=== PATIENT | female | born 1960 | race Caucasian/White ===

== ENCOUNTER 2018-11-17 15:14 | Emergency (ER) | payer BC, OTHER ==
[2018-11-17 16:15] LABS: ANION GAP 14.2; CHLORIDE,CL 108 mmol/L (101-111); SODIUM,NA 140 mmol/L (135-145)
--- NOTE | 2018-11-17 16:32 | CR ---
Clinical history: 58-year-old female with left arm and history of chest pain. 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 Hiatus hernia incarcerated in the lower middle mediastinum. Normal cardiac silhouette without signs of alveolar edema or dependent effusion. No lung mass, hilar lymphadenopathy or focal lobar pneumonia. No atelectasis/collapse. No pneumothorax. CONCLUSION: No acute cardiopulmonary abnormality. Hiatus hernia.
--- NOTE | 2018-11-17 16:35 | CT ---
Clinical history: 58-year-old obese female with left arm pain and visual changes left eye (x2-3 days). Scan technique: Volume acquisition of data emergency unenhanced CT scan of the head and brain obtained with the patient was lying supine on the Siemens multi slice scanner [place], [place]. All data archived in the PACS system for storage, reformatting axial/sagittal/coronal planes and study. Interpretation: 1. Hyperostosis frontalis interna. Symmetric normal appearing optic globes without sign of retro-orbital mass lesion. 2. Symmetric clear pneumatization of the paranasal and mastoid sinuses. Physiologic midline pineal calcifications. 3. No sign of supratentorial or posterior fossa mass lesion, hydrocephalus or ischemic infarct. 4. No acute intracerebral/intraventricular/subarachnoid bleed. No abnormal extracerebral/intracranial epidural/subdural hematoma. 5. Cerebellum and brainstem unremarkable. CONCLUSION: Negative exam.
[2018-11-17] MEDS ORDERED: GI Cocktail Oral Solution 30 ML PO ONE (16:42)
--- NOTE | 2018-11-17 17:57 | EDM.PDOC ---
Scribed by Carmen Medina 11/17/18 [id number] for Speedy Shelby PA ED HPI GENERAL MEDICAL PROBLEM - General Chief Complaint: General Stated Complaint: LEFT ARM HURTS/CHEST DISCOMFORT Time Seen by Provider: 11/17/18 16:00 Source of Information: Reports: Patient, RN, RN Notes Reviewed History Limitations: Reports: No Limitations - History of Present Illness INITIAL COMMENTS - FREE TEXT/NARRATIVE: A 58-year-old female with left arm pain, substernal chest pain, shortness fo breath intermittently. Vision change left eye. Her left arm paiin has been for 3 days. Chest pain for 1 to 2 hours. Intermittent shortness of breath for a month. Visions changes brief episode. Onset: Gradual Duration: Getting Worse Location: Reports: Head, Chest Quality: Reports: Ache Severity: Moderate Improves with: Reports: None Worsens with: Reports: None Associated Symptoms: Reports: No Other Symptoms Treatments MEDICAL CASE WORKER: Reports: Aspirin, Other (see below) Other Treatments MEDICAL CASE WORKER: unknown dose - "white and tasted terrible" Left Axillary Pain Score (Numeric/FACES): 8 - Related Data Allergies Allergy/AdvReac Type Severity Reaction Status Date / Time No Known Allergies Allergy Verified 11/17/18 15:58 Home Meds: Home Meds Azithromycin [Zithromax] 250 mg PO DAILY 05/07/18 [History] Calcium Carbonate [Tums] 2 tab PO ASDIRECTED 05/07/18 [History] Ibuprofen 200 mg PO Q6H 05/07/18 [History] Levothyroxine Sodium [Synthroid] 125 mg PO DAILY 05/07/18 [History] Multivitamin/Iron/Folic Acid [Centrum Adults Tablet] 1 tab PO DAILY 05/07/18 [ History] Omeprazole 20 mg PO DAILY 05/07/18 [History] Rosuvastatin [Crestor] 5 mg PO .EVERYOTHERDAY 05/07/18 [History] Sertraline [Zoloft] 25 mg PO DAILY 05/07/18 [History] Iron 1 tab PO DAILY 11/17/18 [History] Past Medical History HEENT History: Reports: Sinusitis Cardiovascular History: Reports: Blood Clots/VTE/DVT Respiratory History: Reports: None Gastrointestinal History: Reports: None Genitourinary History: Reports: None 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: 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 History: Reports: None Neurological History: Reports: Migraines Psychiatric History: Reports: Depression Endocrine/Metabolic History: Reports: Hypothyroidism Hematologic History: Reports: Anemia Immunologic History: Reports: None Oncologic (Cancer) History: Reports: None Dermatologic History: Reports: None - Infectious Disease History Infectious Disease History: Reports: Chicken Pox, Mumps - Past Surgical History Head Surgeries/Procedures: Reports: None HEENT Surgical History: Reports: None Cardiovascular Surgical History: Reports: None Respiratory Surgical History: Reports: None GI Surgical History: Reports: Cholecystectomy, Colonoscopy, EGD Female Surgical History: Reports: Breast Biopsy, Tubal Ligation Endocrine Surgical History: Reports: None Neurological Surgical History: Reports: None 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 Surgical History: Reports: None Oncologic Surgical History: Reports: Biopsy of Breast Social & Family History - Family History HEENT: Reports: Cataract Cardiac: Reports: High Cholesterol Respiratory: Reports: None GI: Reports: None : Reports: None OBGYN: Reports: None 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: Reports: None Neurological: Reports: None Psychiatric: Reports: None Endocrine/Metabolic: Reports: Diabetes, Type I Hematologic: Reports: None Immunologic: Reports: None Dermatologic: Reports: None Oncologic: Reports: Colon - Caffeine Use Caffeine Use: Reports: Coffee Caffeine Use Comment: COFFEE, 12OZ. 12 OZ SODA ED ROS GENERAL - Review of Systems Review Of Systems: ROS reveals no pertinent complaints other than HPI. ED EXAM, GENERAL - Physical Exam Exam: See Below Exam Limited By: No Limitations General Appearance: Anxious Eye Exam: Bilateral Eye: EOMI, Normal Inspection, PERRL Ears: Normal External Exam, Normal Canal, Hearing Grossly Normal, Normal TMs Nose: Normal Inspection, Normal Mucosa, No Blood Throat/Mouth: Normal Inspection, Normal Lips, Normal Teeth, Normal Gums, Normal Oropharynx, Normal Voice, No Airway Compromise Head: Atraumatic, Normocephalic Neck: Normal Inspection, Supple, Non-Tender, Full Range of Motion Respiratory/Chest: No Respiratory Distress, Lungs Clear, Normal Breath Sounds, No Accessory Muscle Use, Chest Non-Tender Cardiovascular: Normal Peripheral Pulses, Regular Rate, Rhythm, No Edema, No Gallop, No JVD, No Murmur, No Rub (Female) Exam: Deferred Rectal (Female) Exam: Deferred Back Exam: Normal Inspection, Full Range of Motion, NT Extremities: Other (left arm pain (axilla). ) Neurological: Alert, Oriented, CN II-XII Intact, Normal Cognition, Normal Gait, Normal Reflexes, No Motor/Sensory Deficits Psychiatric: Anxious Skin Exam: Warm, Dry, Intact, Normal Color, No Rash Lymphatic: No Adenopathy Course - Vital Signs Last Recorded V/S: Last Vital Signs Temp 37.1 C 11/17/18 15:24 Pulse 81 11/17/18 15:24 Resp 22 H 11/17/18 15:24 BP 166/85 H 11/17/18 15:24 Pulse Ox 97 11/17/18 15:24 - Orders/Labs/Meds Orders: Active Orders 24 hr Category Date Time Status EKG 12 Lead [EKG Documentation Completion] [RC] STAT Care 11/17/18 16:13 Active Labs: Laboratory Tests 11/17/18 11/17/18 Range/Units 15:29 15:29 WBC 6.4 (5.0-10.0) 10^3/uL RBC 4.15 L (4.2-5.4) 10^6/uL Hgb 11.0 L (12.0-16.0) g/dL Hct 36.2 L (37.0-47.0) % MCV 87.2 (80-100) fL MCH 26.5 L (27.0-34.0) pg MCHC 30.4 L (33.0-35.0) g/dL Plt Count 293 (150-450) 10^3/uL Neut % (Auto) 51.0 (42.2-75.2) % Lymph % (Auto) 35.2 (20.5-50.1) % [place] % (Auto) 10.4 H (2-8) % Eos % (Auto) 2.5 (1.0-3.0) % Baso % (Auto) 0.9 (0.0-1.0) % Sodium 140 (135-145) mmol/L Potassium 4.2 (3.6-5.0) mmol/L Chloride 108 (101-111) mmol/L Carbon Dioxide 22.0 (21.0-31.0) mmol/L Anion Gap 14.2 BUN 15 (7-18) mg/dL Creatinine 0.7 (0.6-1.3) mg/dL Est Cr Clr Drug Dosing 74.96 mL/min Estimated GFR (MDRD) > 60 BUN/Creatinine Ratio 21.42 Glucose 96 (74-105) mg/dL Calcium 8.5 (8.4-10.2) mg/dl Total Bilirubin 0.7 (0.2-1.0) mg/dL AST 35 (10-42) IU/L ALT 23 (10-60) IU/L Alkaline Phosphatase 74 (42-121) IU/L Troponin I < 0.02 (0.00-0.02) ng/ml Total Protein 6.7 (6.7-8.2) g/dl Albumin 3.9 (3.2-5.5) g/dl Globulin 2.8 Albumin/Globulin Ratio 1.39 Meds: Medications Discontinued Medications Generic Name Dose Route Start Last Admin Trade Name Freq PRN Reason Stop Dose Admin Al Hydroxide/Mg Hydroxide 30 ml 11/17/18 16:42 11/17/18 16:49 Gi Cocktail PO 11/17/18 16:43 30 ml ONETIME ONE Administration Departure - Departure Time of Disposition: 17:53 Disposition: Home, Self-Care 01 Condition: Fair Clinical Impression: GERD (gastroesophageal reflux disease) Qualifiers: Esophagitis presence: with esophagitis Qualified Code(s): K21.0 - Gastro- esophageal reflux disease with esophagitis - Discharge Information *PRESCRIPTION DRUG MONITORING PROGRAM REVIEWED*: Not Applicable *COPY OF PRESCRIPTION DRUG MONITORING REPORT IN PATIENT LESLEY: Not Applicable Instructions: Gastroesophageal Reflux Disease, Adult, [id number] Forms: ED Department Discharge Care Plan Goals: The patient was advised of the examination, CT, EKG and lab results during the visit. The patient was given a GI Cocktail while in the ED. The patient was discharged with a script for Omeprazole (20 mg) #30 to take 1 by mouth 30 minutes before eating daily. If the patient has any additional symptoms or concerns, the patient should either return to the emergency department or visit her primary care facility. - My Orders Last 24 Hours: My Active Orders 11/17/18 16:13 EKG 12 Lead [EKG Documentation Completion] [RC] STAT - Assessment/Plan Last 24 Hours: My Active Orders 11/17/18 16:13 EKG 12 Lead [EKG Documentation Completion] [RC] STAT I have read and agree with the documentation that has been completed regarding this visit. By signing this record, I attest that the documentation was completed in my physical presence and is an accurate record of the encounter.
== END 2018-11-17 18:03 | disposition home or self-care (01) ==
LOC: DL.ED 15:14
DX: K21.0 Gastro-esophageal reflux disease with esophagitis (principal); E03.9 Hypothyroidism, unspecified; F32.9 Major depressive disorder, single episode, unspecified; Z79.899 Other long term (current) drug therapy
CPT/HCPCS: 36415; 70450; 71045; 80053; 84484; 85025; 93005; 99285; A9270

== ENCOUNTER 2019-07-07 18:44 | Emergency (ER) | payer BC ==
[2019-07-07] MEDS ORDERED: Ondansetron 4 MG Tab.DIS PO ONE (18:45)
[2019-07-07] MEDS ORDERED: Sodium Chloride 0.9% 1,000 ML IV ONE (19:32)
[2019-07-07] MEDS ORDERED: Ondansetron 4 MG/2 ML SDV IV ONE (19:32)
[2019-07-07] MEDS ORDERED: Famotidine 20 MG/2 ML SDV IVPUSH ONE (19:34)
[2019-07-07 19:57] LABS: ANION GAP 14.3; CHLORIDE,CL 102 mmol/L (101-111); SODIUM,NA 135 mmol/L (135-145)
[2019-07-07] MEDS ORDERED: NS + KCl 20mEq/L 1,000 ML IV ONE (20:37)
[2019-07-07] MEDS ORDERED: Levothyroxine 100 MCG Vial IVPUSH ONE (21:42)
--- NOTE | 2019-07-07 22:36 | EDM.PDOC ---
ED HPI GENERAL MEDICAL PROBLEM - General Chief Complaint: Gastrointestinal Problem Stated Complaint: WEAK/DIZZY/DEHYDRATED Time Seen by Provider: 07/07/19 19:30 Source of Information: Reports: Patient History Limitations: Reports: No Limitations - History of Present Illness INITIAL COMMENTS - FREE TEXT/NARRATIVE: C/O feelling weeka nd dizzy and had vomiting and diarrhea past 3 weeks pat 24 hours unable to keep anything down. has been seen at clinic and given IVF> Normally low blood counts undetermined cause and has seen oncology. - Related Data Allergies Allergy/AdvReac Type Severity Reaction Status Date / Time No Known Allergies Allergy Verified 07/08/19 16:54 Home Meds: Home Meds Calcium Carbonate [Tums] 2 tab PO Q4HR 05/07/18 [History] Ibuprofen 200 mg PO Q6H PRN 05/07/18 [History] Levothyroxine Sodium [Synthroid] 125 mcg PO DAILY 05/07/18 [History] Multivitamin/Iron/Folic Acid [Centrum Adults Tablet] 1 tab PO DAILY 05/07/18 [ History] Omeprazole 20 mg PO DAILY 05/07/18 [History] Rosuvastatin [Crestor] 5 mg PO .EVERYOTHERDAY 05/07/18 [History] Sertraline [Zoloft] 25 mg PO DAILY 05/07/18 [History] Ferrous Sulfate [Slow Fe] 140 mg PO DAILY 07/08/19 [History] Iron Polysaccharide Complex [Iferex 150] 150 mg PO DAILY 07/08/19 [History] Loperamide [Imodium] 2 mg PO QID PRN 07/08/19 [History] Past Medical History HEENT History: Reports: Sinusitis Other HEENT History: wears corrective lenses Cardiovascular History: Reports: Blood Clots/VTE/DVT Respiratory History: Reports: None Gastrointestinal History: Reports: None Genitourinary History: Reports: None 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: Reports: 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 History: Reports: None Neurological History: Reports: Migraines Psychiatric History: Reports: Depression Endocrine/Metabolic History: Reports: Hypothyroidism Hematologic History: Reports: Anemia Immunologic History: Reports: None Oncologic (Cancer) History: Reports: None Dermatologic History: Reports: None - Infectious Disease History Infectious Disease History: Reports: Chicken Pox, Mumps - Past Surgical History Head Surgeries/Procedures: Reports: None HEENT Surgical History: Reports: None Cardiovascular Surgical History: Reports: None Respiratory Surgical History: Reports: None GI Surgical History: Reports: Cholecystectomy, Colonoscopy, EGD Female Surgical History: Reports: Breast Biopsy, Tubal Ligation Endocrine Surgical History: Reports: None Neurological Surgical History: Reports: None 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 Surgical History: Reports: None Oncologic Surgical History: Reports: Biopsy of Breast Social & Family History - Family History Family Medical History: Noncontributory HEENT: Reports: Cataract Cardiac: Reports: High Cholesterol Respiratory: Reports: None GI: Reports: None : Reports: None OBGYN: Reports: None 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: Reports: None Neurological: Reports: None Psychiatric: Reports: None Endocrine/Metabolic: Reports: Diabetes, Type I Hematologic: Reports: None Immunologic: Reports: None Dermatologic: Reports: None Oncologic: Reports: Colon - Tobacco Use Smoking Status *Q: Never Smoker Second Hand Smoke Exposure: No - Caffeine Use Caffeine Use: Reports: Coffee Other Caffeine Use: states drinks 1 Body [place] daily Caffeine Use Comment: COFFEE, 12OZ. 12 OZ SODA - Recreational Drug Use Recreational Drug Use: No ED ROS GENERAL - Review of Systems Review Of Systems: See Below Constitutional: Reports: Malaise, Decreased Appetite HEENT: Reports: No Symptoms Respiratory: Denies: Shortness of Breath, Wheezing Cardiovascular: Reports: No Symptoms. Denies: Orthopnea, Syncope GI/Abdominal: Reports: Diarrhea, Vomiting. Denies: Black Stool, Hematemesis : Reports: No Symptoms Skin: Reports: No Symptoms Neurological: Reports: No Symptoms Hematologic/Lymphatic: Reports: Anemia ED EXAM, GI/ABD - Physical Exam Exam: See Below Exam Limited By: No Limitations General Appearance: Alert, Anxious, Mild Distress Eyes: Bilateral: EOMI Ears: Normal External Exam Nose: Normal Inspection Throat/Mouth: Normal Lips, Normal Voice, Other (mucus membranes tacky) Head: Atraumatic, Normocephalic Neck: Normal Inspection Respiratory/Chest: No Respiratory Distress, Lungs Clear, Normal Breath Sounds Cardiovascular: Normal Peripheral Pulses, Regular Rate, Rhythm, No Edema GI/Abdominal Exam: Normal Bowel Sounds, Soft, Other (mild epigastric tenderness) Rectal (Female) Exam: Heme - Stool Back Exam: Normal Inspection Extremities: Normal Inspection Neurological: Alert, Oriented, Normal Cognition, No Motor/Sensory Deficits Psychiatric: Anxious Skin Exam: Warm, Dry, Intact, Pallor Course - Vital Signs Last Recorded V/S: Last Vital Signs Temp 97.8 F 07/07/19 19:17 Pulse 75 07/07/19 19:17 Resp 18 07/07/19 19:17 BP 125/77 07/07/19 19:17 Pulse Ox 95 07/07/19 19:17 Orthostatic Blood Pressure [ 117/68 Standing] Orthostatic Blood Pressure [ 123/76 Sitting] Orthostatic Blood Pressure [ 115/62 Supine] - Orders/Labs/Meds Labs: Laboratory Tests 07/07/19 07/07/19 07/07/19 Range/Units 19:27 19:27 19:32 WBC 4.5 L (5.0-10.0) 10^3/uL RBC 4.06 L (4.2-5.4) 10^6/uL Hgb 8.8 L D (12.0-16.0) g/dL Hct 29.7 L (37.0-47.0) % MCV 73.2 L D (80-100) fL MCH 21.7 L (27.0-34.0) pg MCHC 29.6 L (33.0-35.0) g/dL Plt Count 371 D (150-450) 10^3/uL Neut % (Auto) 50.7 (42.2-75.2) % Lymph % (Auto) 33.6 (20.5-50.1) % Chase % (Auto) 14.2 H (2-8) % Eos % (Auto) 1.3 (1.0-3.0) % Baso % (Auto) 0.2 (0.0-1.0) % Add Manual Diff Yes Neutrophils % (Manual) 51 (42-75) % Lymphocytes % (Manual) 37 (20-50) % Monocytes % (Manual) 11 H (2-8) % Eosinophils % (Manual) 1 (1-3) % Atypical Lymphocytes Few PT 9.3 (9.0-12.0) SEC INR 0.9 (0.9-1.2) Sodium 135 (135-145) mmol/L Potassium 3.3 L (3.6-5.0) mmol/L Chloride 102 (101-111) mmol/L Carbon Dioxide 22.0 (21.0-31.0) mmol/L Anion Gap 14.3 BUN 10 (7-18) mg/dL Creatinine 0.8 (0.6-1.3) mg/dL Est Cr Clr Drug Dosing 67.00 mL/min Estimated GFR (MDRD) > 60 BUN/Creatinine Ratio 12.50 Glucose 109 H (74-105) mg/dL Calcium 8.1 L (8.4-10.2) mg/dl Magnesium (1.8-2.5) mg/dL Total Bilirubin 0.3 (0.2-1.0) mg/dL AST 22 (10-42) IU/L ALT 20 (10-60) IU/L Alkaline Phosphatase 77 (42-121) IU/L Troponin I (0.00-0.02) ng/ml Total Protein 7.0 (6.7-8.2) g/dl Albumin 3.4 (3.2-5.5) g/dl Globulin 3.6 Albumin/Globulin Ratio 0.94 Amylase (28-100) U/L Lipase (22-51) U/L TSH, Ultra Sensitive (0.45-5.33) uIu/mL Urine Color (YELLOW) Urine Appearance (CLEAR) Urine pH (5.0-9.0) Ur Specific [place] (1.005-1.030) Urine Protein (NEGATIVE) Urine Glucose (UA) (NEGATIVE) Urine Ketones (NEGATIVE) Urine Occult Blood (NEGATIVE) Urine Nitrite (NEGATIVE) Urine Bilirubin (NEGATIVE) Urine Urobilinogen (0.2-1.0) mg/dL Ur Leukocyte Esterase (NEGATIVE) Blood Type Gel Antibody Screen 07/07/19 07/07/19 07/07/19 Range/Units 19:32 19:32 19:41 WBC (5.0-10.0) 10^3/uL RBC (4.2-5.4) 10^6/uL Hgb (12.0-16.0) g/dL Hct (37.0-47.0) % MCV (80-100) fL MCH (27.0-34.0) pg MCHC (33.0-35.0) g/dL Plt Count (150-450) 10^3/uL Neut % (Auto) (42.2-75.2) % Lymph % (Auto) (20.5-50.1) % Chase % (Auto) (2-8) % Eos % (Auto) (1.0-3.0) % Baso % (Auto) (0.0-1.0) % Add Manual Diff Neutrophils % (Manual) (42-75) % Lymphocytes % (Manual) (20-50) % Monocytes % (Manual) (2-8) % Eosinophils % (Manual) (1-3) % Atypical Lymphocytes PT (9.0-12.0) SEC INR (0.9-1.2) Sodium (135-145) mmol/L Potassium (3.6-5.0) mmol/L Chloride (101-111) mmol/L Carbon Dioxide (21.0-31.0) mmol/L Anion Gap BUN (7-18) mg/dL Creatinine (0.6-1.3) mg/dL Est Cr Clr Drug Dosing mL/min Estimated GFR (MDRD) BUN/Creatinine Ratio Glucose (74-105) mg/dL Calcium (8.4-10.2) mg/dl Magnesium 1.9 (1.8-2.5) mg/dL Total Bilirubin (0.2-1.0) mg/dL AST (10-42) IU/L ALT (10-60) IU/L Alkaline Phosphatase (42-121) IU/L Troponin I < 0.02 (0.00-0.02) ng/ml Total Protein (6.7-8.2) g/dl Albumin (3.2-5.5) g/dl Globulin Albumin/Globulin Ratio Amylase 51 (28-100) U/L Lipase 25 (22-51) U/L TSH, Ultra Sensitive 21.23 H (0.45-5.33) uIu/mL Urine Color (YELLOW) Urine Appearance (CLEAR) Urine pH (5.0-9.0) Ur Specific [place] (1.005-1.030) Urine Protein (NEGATIVE) Urine Glucose (UA) (NEGATIVE) Urine Ketones (NEGATIVE) Urine Occult Blood (NEGATIVE) Urine Nitrite (NEGATIVE) Urine Bilirubin (NEGATIVE) Urine Urobilinogen (0.2-1.0) mg/dL Ur Leukocyte Esterase (NEGATIVE) Blood Type A POSITIVE Gel Antibody Screen Negative 07/07/19 Range/Units 20:25 WBC (5.0-10.0) 10^3/uL RBC (4.2-5.4) 10^6/uL Hgb (12.0-16.0) g/dL Hct (37.0-47.0) % MCV (80-100) fL MCH (27.0-34.0) pg MCHC (33.0-35.0) g/dL Plt Count (150-450) 10^3/uL Neut % (Auto) (42.2-75.2) % Lymph % (Auto) (20.5-50.1) % Chase % (Auto) (2-8) % Eos % (Auto) (1.0-3.0) % Baso % (Auto) (0.0-1.0) % Add Manual Diff Neutrophils % (Manual) (42-75) % Lymphocytes % (Manual) (20-50) % Monocytes % (Manual) (2-8) % Eosinophils % (Manual) (1-3) % Atypical Lymphocytes PT (9.0-12.0) SEC INR (0.9-1.2) Sodium (135-145) mmol/L Potassium (3.6-5.0) mmol/L Chloride (101-111) mmol/L Carbon Dioxide (21.0-31.0) mmol/L Anion Gap BUN (7-18) mg/dL Creatinine (0.6-1.3) mg/dL Est Cr Clr Drug Dosing mL/min Estimated GFR (MDRD) BUN/Creatinine Ratio Glucose (74-105) mg/dL Calcium (8.4-10.2) mg/dl Magnesium (1.8-2.5) mg/dL Total Bilirubin (0.2-1.0) mg/dL AST (10-42) IU/L ALT (10-60) IU/L Alkaline Phosphatase (42-121) IU/L Troponin I (0.00-0.02) ng/ml Total Protein (6.7-8.2) g/dl Albumin (3.2-5.5) g/dl Globulin Albumin/Globulin Ratio Amylase (28-100) U/L Lipase (22-51) U/L TSH, Ultra Sensitive (0.45-5.33) uIu/mL Urine Color Yellow (YELLOW) Urine Appearance Clear (CLEAR) Urine pH 5.5 (5.0-9.0) Ur Specific [place] 1.010 (1.005-1.030) Urine Protein Negative (NEGATIVE) Urine Glucose (UA) Negative (NEGATIVE) Urine Ketones Negative (NEGATIVE) Urine Occult Blood Negative (NEGATIVE) Urine Nitrite Negative (NEGATIVE) Urine Bilirubin Negative (NEGATIVE) Urine Urobilinogen 0.2 (0.2-1.0) mg/dL Ur Leukocyte Esterase Negative (NEGATIVE) Blood Type Gel Antibody Screen Meds: Medications Discontinued Medications Generic Name Dose Route Start Last Admin Trade Name Raf PRN Reason Stop Dose Admin Famotidine 20 mg 07/07/19 19:34 07/07/19 19:42 Pepcid IVPUSH 07/07/19 19:35 20 mg ONETIME ONE Administration Sodium Chloride 1,000 mls @ 999 mls/hr 07/07/19 19:32 07/07/19 19:40 Normal Saline IV 07/07/19 20:32 999 mls/hr .BOLUS ONE Administration Potassium Chloride/Sodium Chloride 1,000 mls @ 500 mls/hr 07/07/19 20:37 07/26 20:48 Normal Saline With 20 Meq Kcl IV 07/07/19 22:36 500 mls/hr ASDIRECTED ONE Administration Levothyroxine Sodium 100 mcg 07/07/19 21:42 07/07/19 21:59 Synthroid IVPUSH 07/07/19 21:43 100 mcg ONETIME ONE Administration Ondansetron HCl 4 mg 07/07/19 19:32 07/07/19 19:40 Zofran IV 07/07/19 19:33 4 mg ONETIME ONE Administration Ondansetron HCl Confirm 07/07/19 22:48 07/07/19 22:53 Zofran Odt Administered 07/07/19 22:49 Not Given Dose 12 mg .ROUTE .STK-MED ONE - Re-Assessments/Exams Free Text/Narrative Re-Assessment/Exam: 07/10/19 06:44 No vomiting or diarrhea during ED stay. No orthostatic change. Results of labs discussed withpatient. Follow up PCP this week. Return if symptoms worsen Departure - Departure Time of Disposition: 22:32 Disposition: Home, Self-Care 01 Condition: Good Clinical Impression: Dehydration Vomiting Qualifiers: Vomiting type: bilious vomiting Nausea presence: with nausea Qualified Code(s) : R11.14 - Bilious vomiting Hypothyroid Qualifiers: Hypothyroidism type: unspecified Qualified Code(s): E03.9 - Hypothyroidism, unspecified Anemia Qualifiers: Anemia type: unspecified type Qualified Code(s): D64.9 - Anemia, unspecified - Discharge Information *PRESCRIPTION DRUG MONITORING PROGRAM REVIEWED*: No *COPY OF PRESCRIPTION DRUG MONITORING REPORT IN PATIENT LESLEY: No Instructions: Hypothyroidism, Nausea, Adult, [id number], Dehydration, Adult Referrals: Cristal Billy MD [Primary Care Provider] - Forms: ED Department Discharge Additional Instructions: Resume home medications zofran ODT 4mg one every 4 hours as needed for nausea clinic follow up on Friday light diet, few sips gradual advancement as tolerated limit milk products x 24 hours change position slowly Sepsis Event Note - Evaluation Sepsis Screening Result: No Definite Risk - Focused Exam Date Exam was Performed: 07/10/19 Time Exam was Performed: 06:36
[2019-07-07] MEDS ORDERED: Ondansetron 4 MG Tab.DIS ONE (22:48)
== END 2019-07-07 23:07 | disposition home or self-care (01) ==
LOC: DL.ED 18:44 → UNDOADMIN 07-08 16:16 → DL.MS 07-08 16:16
DX: E86.0 Dehydration (principal); R11.14 Bilious vomiting; E03.9 Hypothyroidism, unspecified; D64.9 Anemia, unspecified; F32.9 Major depressive disorder, single episode, unspecified; Z79.899 Other long term (current) drug therapy
CPT/HCPCS: 36415; 80053; 81003; 82150; 82272; 83690; 83735; 84443; 84484; 85025; 85610; 86850; 86900; 86901; 93005; 96361; 96365; 96366; 96375; 99284; A9270; J2405; J3480; J3490; J7030

== ENCOUNTER 2019-07-08 16:16 | Inpatient (IN) | payer BC ==
[2019-07-08] MEDS ORDERED: Loperamide 2 MG Cap PO PRN (17:12)
--- NOTE | 2019-07-08 17:23 | PCM.HP ---
H&P History of Present Illness - General Date of Service: 07/08/19 Admit Problem/Dx: Admission Diagnosis/Problem Admission Diagnosis/Problem Diarrhea Source of Information: Patient History Limitations: Reports: No Limitations - History of Present Illness Initial Comments - Free Text/Narative: This 58-year-old female with medical history of osteoarthritis, hypothyroidism, gastroesophageal reflux disease, and dyslipidemia. Patient is admitted from the clinic because of diarrhea that has not responded to outpatient management with associated vomiting. Patient began to have diarrhea on 06/26/19. He was very profuse. She was going every 2 hours and later on it became every 4 hours. Has continued to have diarrhea despite using Imodium tablets frequently. Also has associated nausea and vomiting. No abdominal pain. No hematemesis melena or hematochezia. Patient has been seen emergency room twice and given intravenous fluid because of dehydration. She was again seen in the clinic today and feels miserable. She'll be admitted to the medical floor. - Related Data Allergies/Adverse Reactions: Allergies Allergy/AdvReac Type Severity Reaction Status Date / Time No Known Allergies Allergy Verified 07/08/19 16:54 Home Medications: Home Meds Calcium Carbonate [Tums] 2 tab PO Q4HR 05/07/18 [History] Ibuprofen 200 mg PO Q6H PRN 05/07/18 [History] Levothyroxine Sodium [Synthroid] 125 mg PO DAILY 05/07/18 [History] Multivitamin/Iron/Folic Acid [Centrum Adults Tablet] 1 tab PO DAILY 05/07/18 [ History] Omeprazole 20 mg PO DAILY 05/07/18 [History] Rosuvastatin [Crestor] 5 mg PO .EVERYOTHERDAY 05/07/18 [History] Sertraline [Zoloft] 25 mg PO DAILY 05/07/18 [History] Ferrous Sulfate [Slow Fe] 140 mg PO DAILY 07/08/19 [History] Iron Polysaccharide Complex [Iferex 150] 150 mg PO DAILY 07/08/19 [History] Levothyroxine 12.5 mcg PO ACBREAKFAST 07/08/19 [History] Loperamide [Imodium] 2 mg PO QID PRN 07/08/19 [History] Past Medical History HEENT History: Reports: Sinusitis Other HEENT History: wears corrective lenses Cardiovascular History: Reports: Blood Clots/VTE/DVT Respiratory History: Reports: Pneumonia, Recurrent Gastrointestinal History: Reports: None Genitourinary History: Reports: None 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: 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 History: Reports: None Neurological History: Reports: Migraines Psychiatric History: Reports: Depression Endocrine/Metabolic History: Reports: Hypothyroidism Hematologic History: Reports: Anemia Immunologic History: Reports: None Oncologic (Cancer) History: Reports: None Dermatologic History: Reports: None - Infectious Disease History Infectious Disease History: Reports: Chicken Pox, Measles, Mumps - Past Surgical History Head Surgeries/Procedures: Reports: None HEENT Surgical History: Reports: None Cardiovascular Surgical History: Reports: None Respiratory Surgical History: Reports: None GI Surgical History: Reports: Cholecystectomy, Colonoscopy, EGD Other GI Surgeries/Procedures: Currently has diarrhea Female Surgical History: Reports: Breast Biopsy, Tubal Ligation Endocrine Surgical History: Reports: None Neurological Surgical History: Reports: None 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 Surgical History: Reports: None Oncologic Surgical History: Reports: Biopsy of Breast Social & Family History - Family History Family Medical History: Noncontributory HEENT: Reports: Cataract Cardiac: Reports: High Cholesterol Respiratory: Reports: None GI: Reports: None : Reports: None OBGYN: Reports: None 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: Reports: None Neurological: Reports: None Psychiatric: Reports: None Endocrine/Metabolic: Reports: Diabetes, Type I Hematologic: Reports: None Immunologic: Reports: None Dermatologic: Reports: None Oncologic: Reports: Colon - Tobacco Use Smoking Status *Q: Former Smoker Used Tobacco, but Quit: Yes Month/Year Tobacco Last Used: 10/2009 - Caffeine Use Caffeine Use: Reports: Coffee, Soda, Tea Other Caffeine Use: states drinks 1 Body [place] daily Caffeine Use Comment: COFFEE, 12OZ. 12 OZ SODA - Recreational Drug Use Recreational Drug Use: No H&P Review of Systems - Review of Systems: Review Of Systems: See Below General: Reports: Malaise, Weakness Pulmonary: Reports: No Symptoms Cardiovascular: Reports: No Symptoms Gastrointestinal: Reports: Diarrhea, Vomiting Genitourinary: Reports: No Symptoms 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: Reports: No Symptoms Skin: Reports: No Symptoms Psychiatric: Reports: No Symptoms Exam - Exam Exam: See Below - Vital Signs Vital Signs: Last Vital Signs Temp 36.7 C 07/08/19 16:37 Pulse 66 07/08/19 16:37 Resp 20 07/08/19 16:37 BP 137/76 07/08/19 16:37 Pulse Ox 100 07/08/19 16:37 Weight: 100.698 kg - Exam General: Alert, Oriented, Cooperative HEENT: Conjunctiva Clear, Mucosa Moist & [place] Neck: Supple, Trachea Midline Lungs: Clear to Auscultation, Normal Respiratory Effort Cardiovascular: Regular Rate, Regular Rhythm GI/Abdominal Exam: Normal Bowel Sounds, Soft, Non-Tender Extremities: Normal Inspection, Normal Range of Motion, Non-Tender, No Pedal Edema, Normal Capillary Refill Skin: Warm, Dry, Intact Problem List Initiated/Reviewed/Updated: Yes Orders Last 24hrs: Active Orders 24 hr Category Date Time Status Patient Status [ADT] Routine ADT 07/08/19 17:09 Active Intake and Output [RC] QSHIFT Care 07/08/19 17:10 Active Oxygen Therapy [RC] PRN Care 07/08/19 17:09 Active Up ad Loni [RC] ASDIRECTED Care 07/08/19 17:09 Active VTE/DVT Education [RC] PER UNIT ROUTINE Care 07/08/19 17:09 Active Vital Signs [RC] Q4H Care 07/08/19 17:09 Active Regular Diet [DIET] Diet 07/08/19 Dinner Active Abdomen Pelvis w Cont [CT] Routine Exams 07/08/19 17:12 Ordered BASIC METABOLIC PANEL,BMP [CHEM] Routine Lab 07/09/19 06:00 Ordered CBC W/O DIFF,HEMOGRAM [HEME] Routine Lab 07/09/19 06:00 Ordered CLOSTRIDIUM DIFFICILE TOX RFLX [MREF] Routine Lab 07/08/19 17:15 Ordered COMPREHENSIVE METABOLIC PN,CMP [CHEM] AM Lab 07/09/19 05:11 Ordered OVA PARASITE EXAM Routine Lab 07/08/19 17:13 Ordered OVA & PARASITES BY IMMUNOASSAY [MREF] Routine Lab 07/08/19 17:13 Ordered TSH ULTRASENSITIVE [CHEM] Routine Lab 07/08/19 17:13 Ordered Enoxaparin [Lovenox] Med 07/09/19 09:00 Ordered 40 mg SUBCUT DAILY Loperamide [Imodium] Med 07/08/19 17:12 Ordered 2 mg PO Q4H PRN Ondansetron [Zofran] Med 07/08/19 17:09 Ordered 4 mg IVPUSH Q6H PRN Sodium Chloride 0.9% [Normal Saline] 1,000 ml Med 07/08/19 17:15 Ordered IV ASDIRECTED Isolation [COMM] Stat Oth 07/08/19 17:16 Ordered Resuscitation Status Routine Resus Stat 07/08/19 17:09 Ordered Medication Orders Enoxaparin Sodium (Lovenox) 40 mg SUBCUT DAILY [facility] Sodium Chloride (Normal Saline) 1,000 mls @ 125 mls/hr IV ASDIRECTED [facility] Loperamide HCl (Imodium) 2 mg PO Q4H PRN PRN Reason: Diarrhea Ondansetron HCl (Zofran) 4 mg IVPUSH Q6H PRN PRN Reason: Nausea/Vomiting Assessment/Plan Comment:: #. Diarrhea The patient has been having diarrhea for the past 2 weeks Because of the diarrhea is not obvious. I like to rule out colitis, C. difficile colitis. It could also be gastroenteritis but it usually does not last this long. #. Anemia Recently diagnosed with anemia Reason for this is not obvious Combination of diarrhea and anemia raises concern about celiac's disease #. Hypothyroidism on no hormone replacement therapy #. Gastroesophageal reflux disease On proton pump inhibitor #. Dyslipidemia Continue statin Plan: Admit patient to medical floor Intravenous hydration with normal saline Obtain CT scan of the abdomen Send stool for ova and parasite Send stool for C. difficile toxin Send stool for cultures Obtain serum ferritin iron and IBC. Patient's medical chart was reviewed.
[2019-07-08] MEDS ORDERED: Sodium Chloride 0.9% 10 ML Syringe FLUSH PRN (17:40)
[2019-07-08] MEDS: Sodium Chloride 0.9% 1,000 ML IV SCH (17:57)
[2019-07-08] MEDS: Ondansetron 4 MG/2 ML SDV IVPUSH PRN (17:57)
[2019-07-08] MEDS ORDERED: Acetaminophen 325 MG Tab PO PRN (20:15)
[2019-07-08] MEDS: Prochlorperazine 5 MG Tab PO PRN (20:25)
[2019-07-08] MEDS: traMADol 50 MG Tab PO SCH (22:40)
[2019-07-09] MEDS: Sodium Chloride 0.9% 1,000 ML IV SCH ×2 (02:01→09:21)
[2019-07-09] MEDS: traMADol 50 MG Tab PO SCH (04:39)
[2019-07-09 06:57] LABS: ANION GAP 10.2; CHLORIDE,CL 110 mmol/L (101-111); SODIUM,NA 141 mmol/L (135-145)
[2019-07-09] MEDS: traMADol 50 MG Tab PO PRN (09:20)
[2019-07-09] MEDS ORDERED: Levothyroxine 100 MCG Tab PO SCH (10:00)
[2019-07-09] MEDS ORDERED: Ferrous Sulfate 325 MG Tab PO SCH (11:00)
[2019-07-09] MEDS ORDERED: Barium Sulfate w/v 2.1% Oral Susp 450 ML Bottle PO ONE (11:02)
[2019-07-09] MEDS: Prochlorperazine 5 MG Tab PO PRN (11:10)
--- NOTE | 2019-07-09 11:42 | PCM.PN ---
- General Info Date of Service: 07/09/19 Subjective Update: Patient is complaining of feeling very weak today. She feels exhausted. Her hemoglobin is down to 7.7. No longer having diarrhea. No nausea and no vomiting since admission. Has not had fever chills or rigors. She is asking for blood transfusion - Review of Systems General: Reports: Weakness, Fatigue HEENT: Reports: No Symptoms Pulmonary: Reports: Shortness of Breath Cardiovascular: Reports: No Symptoms Gastrointestinal: Reports: No Symptoms - Patient Data Vitals - Most Recent: Last Vital Signs Temp 36.6 C 07/09/19 07:56 Pulse 60 07/09/19 07:56 Resp 20 07/09/19 07:56 BP 109/61 07/09/19 07:56 Pulse Ox 96 07/09/19 07:56 Weight - Most Recent: 100.698 kg I&O - Last 24 Hours: Intake & Output 07/08/19 07/09/19 07/09/19 22:59 06:59 14:59 Output Total 500 Balance -500 Lab Results Last 24 Hours: Laboratory Results - last 24 hr 07/09/19 07/09/19 07/09/19 Range/Units 05:50 05:50 05:50 WBC 3.7 L (5.0-10.0) 10^3/uL RBC 3.63 L (4.2-5.4) 10^6/uL Hgb 7.7 L (12.0-16.0) g/dL Hct 27.5 L (37.0-47.0) % MCV 75.8 L (80-100) fL MCH 21.2 L (27.0-34.0) pg MCHC 28.0 L (33.0-35.0) g/dL Plt Count 338 (150-450) 10^3/uL Sodium 141 (135-145) mmol/L Potassium 4.2 (3.6-5.0) mmol/L Chloride 110 (101-111) mmol/L Carbon Dioxide 25.0 (21.0-31.0) mmol/L Anion Gap 10.2 BUN 6 L (7-18) mg/dL Creatinine 0.8 (0.6-1.3) mg/dL Est Cr Clr Drug Dosing 67.00 mL/min Estimated GFR (MDRD) > 60 BUN/Creatinine Ratio 7.50 Glucose 85 (74-105) mg/dL Calcium 7.6 L (8.4-10.2) mg/dl Total Bilirubin 0.4 (0.2-1.0) mg/dL AST 17 (10-42) IU/L ALT 15 (10-60) IU/L Alkaline Phosphatase 69 (42-121) IU/L Total Protein 5.8 L (6.7-8.2) g/dl Albumin 2.8 L (3.2-5.5) g/dl Globulin 3.0 Albumin/Globulin Ratio 0.93 TSH, Ultra Sensitive 28.54 H (0.45-5.33) uIu/mL Med Orders - Current: Current Medications Acetaminophen (Tylenol) 650 mg PO Q6H PRN PRN Reason: Headache Last Admin: 07/08/19 20:24 Dose: 325 mg Enoxaparin Sodium (Lovenox) 40 mg SUBCUT DAILY [facility] Ferrous Sulfate (Ferrous Sulfate) 325 mg PO TID@0900,1100,1600 [facility] Sodium Chloride (Normal Saline) 1,000 mls @ 75 mls/hr IV ASDIRECTED [facility] Last Infusion: 07/09/19 10:36 Dose: 75 mls/hr Levothyroxine Sodium (Synthroid) 200 mcg PO DAILY@0500 [facility] Loperamide HCl (Imodium) 2 mg PO Q4H PRN PRN Reason: Diarrhea Multivitamins/Minerals (Vitamins And Minerals) 1 tab PO DAILY [facility] Omeprazole (Omeprazole) 20 mg PO BEDTIME [facility] Ondansetron HCl (Zofran) 4 mg IVPUSH Q6H PRN PRN Reason: Nausea/Vomiting Last Admin: 07/08/19 17:57 Dose: 4 mg Prochlorperazine Maleate (Compazine) 10 mg PO Q6HR PRN PRN Reason: Nausea Last Admin: 07/09/19 11:10 Dose: 10 mg Rosuvastatin Calcium (Crestor) 5 mg PO Q48H [facility] Sertraline HCl (Zoloft) 25 mg PO DAILY [facility] Sodium Chloride (Saline Flush) 10 ml FLUSH ASDIRECTED PRN PRN Reason: Keep Vein Open Tramadol HCl (Ultram) 50 mg PO Q6H PRN PRN Reason: Pain (moderate 4-6) Last Admin: 07/09/19 09:20 Dose: 50 mg Discontinued Medications Barium Sulfate (Readi-Cat 2) 900 ml PO ONETIME ONE Stop: 07/09/19 11:03 Last Admin: 07/09/19 11:10 Dose: 900 ml Ferrous Sulfate (Ferrous Sulfate) 325 mg PO TIDAC [facility] Last Admin: 07/09/19 11:33 Dose: Not Given Levothyroxine Sodium (Synthroid) 200 mcg PO ACBREAKFAST [facility] Last Admin: 07/09/19 11:33 Dose: Not Given Tramadol HCl (Ultram) 50 mg PO Q6H [facility] Last Admin: 07/09/19 04:39 Dose: Not Given - Exam General: Alert, Oriented, Cooperative Neck: Supple Lungs: Clear to Auscultation, Normal Respiratory Effort Cardiovascular: Regular Rate, Regular Rhythm GI/Abdominal Exam: Normal Bowel Sounds, Soft, Non-Tender, No Organomegaly, No Distention, No Abnormal Bruit, No Mass, Pelvis Stable Extremities: Normal Inspection, Normal Range of Motion, Non-Tender, No Pedal Edema, Normal Capillary Refill Sepsis Event Note - Evaluation Sepsis Screening Result: No Definite Risk - Focused Exam Vital Signs: Vital Signs Temp Pulse Resp BP BP Pulse Ox 07/09/19 07:56 36.6 C 60 20 109/61 96 07/09/19 04:00 36.6 C 59 L 18 115/69 95 07/09/19 00:00 36.6 C 60 18 107/67 95 Date Exam was Performed: 07/09/19 Time Exam was Performed: 11:37 - Problem List Review Problem List Initiated/Reviewed/Updated: Yes - My Orders Last 24 Hours: My Active Orders 07/08/19 17:09 Patient Status [ADT] Routine Oxygen Therapy [RC] PRN Up ad Loni [RC] ASDIRECTED VTE/DVT Education [RC] PER UNIT ROUTINE Vital Signs [RC] 00,04,08,12,16,20 Ondansetron [Zofran] 4 mg IVPUSH Q6H PRN Resuscitation Status Routine 07/08/19 17:10 Intake and Output [RC] QSHIFT 07/08/19 17:12 Loperamide [Imodium] 2 mg PO Q4H PRN 07/08/19 17:15 Sodium Chloride 0.9% [Normal Saline] 1,000 ml IV ASDIRECTED 07/08/19 17:16 Isolation [COMM] Stat 07/08/19 17:40 Peripheral IV Care [RC] 08,20 Sodium Chloride 0.9% [Saline Flush] 10 ml FLUSH ASDIRECTED PRN Peripheral IV Insertion Adult [OM.PC] Routine 07/08/19 17:45 CLOSTRIDIUM DIFFICILE TOX RFLX [MREF] Routine OVA & PARASITES BY IMMUNOASSAY [MREF] Routine SHIGA TOXIN 1 & 2 [MREF] Routine 07/08/19 20:13 Prochlorperazine [Compazine] 10 mg PO Q6HR PRN 07/08/19 20:15 Acetaminophen [Tylenol] 650 mg PO Q6H PRN 07/08/19 Dinner Regular Diet [DIET] 07/09/19 Abdomen Pelvis w Cont [CT] Routine 07/09/19 04:56 traMADol [Ultram] 50 mg PO Q6H PRN 07/09/19 05:50 RED BLOOD CELLS LP [BBK] Routine TYPE AND SCREEN [BBK] Routine 07/09/19 09:00 Enoxaparin [Lovenox] 40 mg SUBCUT DAILY 07/09/19 10:00 Rosuvastatin [Crestor] 5 mg PO Q48H 07/09/19 16:00 Ferrous Sulfate 325 mg PO TID@0900,1100,1600 07/09/19 21:00 Omeprazole 20 mg PO BEDTIME 07/10/19 05:00 Levothyroxine [Synthroid] 200 mcg PO DAILY@0500 07/10/19 09:00 Multivitamins/Minerals [Vitamins and Minerals] 1 tab PO DAILY Sertraline [Zoloft] 25 mg PO DAILY - Plan Plan:: #. 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 I like to rule out colitis, C. difficile colitis. It could also be gastroenteritis but it usually does not last this long. #. Anemia Patient has iron deficiency anemia. Had EGD which was unremarkable. Also had a colonoscopy Reason for this is not obvious Combination of diarrhea and anemia raises concern about celiac's disease #. Hypothyroidism on no hormone replacement therapy Serum TSH is 28 indicating suboptimal replacement Patient has been on iron supplement which can affect absorption of levothyroxine #. Gastroesophageal reflux disease On proton pump inhibitor #. Dyslipidemia Continue statin Plan: Reduce intravenous fluid to 75 mL an hour transfuse 1 unit of packed red blood cell Obtain repeat hemoglobin posttransfusion Obtain CT scan of the abdomen Discussed with the pharmacist. Change timing of administration of levothyroxine relative to meals and iron supplement Patient's medical chart was reviewed.
[2019-07-09] MEDS ORDERED: Iopamidol 612 MG/ML 100 ML Bottle IVPUSH ONE (13:00)
[2019-07-09] MEDS: Ondansetron 4 MG/2 ML SDV IVPUSH PRN (14:01)
--- NOTE | 2019-07-09 16:23 | CT ---
EXAMINATION: Abdomen Pelvis w Cont SEX: Female AGE: 58 years CLINICAL HISTORY: 58-year-old obese female with DIARRHEA. Scan technique: Volume acquisition of data from the abdomen and pelvis obtained after oral ingestion 2 bottles Redicat barium and during/after intravenous infusion 100 cc nonionic Isovue contrast (3 cc/s via injector) while patient was lying supine on the Siemens multi slice scanner [place], [place]. All data archived in the PACS system for storage, reformatting and study. Interpretation: 1. Fatty liver (cholecystectomy). Huge HIATUS HERNIA with over half of the stomach filling the lower middle mediastinum. 2. Spleen, pancreas, adrenal glands and kidneys unremarkable. (Solitary small peripelvic cyst left kidney) 3. Normal midline uterus. No adnexal or abdominal mass lesion, inflammatory "dirty" peritoneal fat, mesenteric/retroperitoneal lymphadenopathy, signs of mechanical bowel obstruction, ascites or free intraperitoneal air. Normal appendix RLQ. 4. Patchy atelectasis posterior segment right lower lobe adjacent to the hiatus hernia. Lung bases otherwise clear. 5. Normal caliber aortoiliac vessels. Osteopenia and exaggerated lumbar lordosis. No pathologic skeletal lesion or fractures. CONCLUSION: Cholecystectomy. Fatty liver. Small left renal cysts. Large hiatus hernia. No signs of acute peritonitis or intraperitoneal malignancy. INTERPRETATION: 1. CONCLUSION:
[2019-07-09] MEDS: Rosuvastatin 10 MG Tab PO SCH (17:52)
[2019-07-09] MEDS: Ferrous Sulfate 325 MG Tab PO SCH (17:52)
[2019-07-09] MEDS: Enoxaparin 40 MG/0.4 ML Syringe SUBCUT SCH (17:54)
[2019-07-09] MEDS: Omeprazole 20 MG Cap.CR PO SCH (20:41)
[2019-07-10] MEDS: Sodium Chloride 0.9% 1,000 ML IV SCH (01:19)
[2019-07-10] MEDS: traMADol 50 MG Tab PO PRN (02:58)
[2019-07-10] MEDS: Levothyroxine 100 MCG Tab PO SCH (05:04)
[2019-07-10] MEDS: Prochlorperazine 5 MG Tab PO PRN (05:05)
[2019-07-10] MEDS: Ondansetron 4 MG/2 ML SDV IVPUSH PRN (05:26)
[2019-07-10] MEDS: Enoxaparin 40 MG/0.4 ML Syringe SUBCUT SCH (10:01)
[2019-07-10] MEDS: Sertraline 50 MG Tab PO SCH (10:01)
[2019-07-10] MEDS: Ferrous Sulfate 325 MG Tab PO SCH ×3 (10:01→16:38)
[2019-07-10] MEDS: Multivitamins, Therapeutic with Minerals Tab PO SCH (10:01)
--- NOTE | 2019-07-10 10:23 | PCM.PN ---
- General Info Date of Service: 07/10/19 Subjective Update: Patient indicates that she still feels weak Also complaining of dizziness and nausea. Diarrhea has stopped Antiemetics does help temporarily with the nausea - Review of Systems General: Reports: Weakness, Fatigue Pulmonary: Reports: No Symptoms Cardiovascular: Reports: No Symptoms Neurological: Reports: Dizziness - Patient Data Vitals - Most Recent: Last Vital Signs Temp 36.7 C 07/10/19 08:00 Pulse 68 07/10/19 08:00 Resp 20 07/10/19 08:00 BP 125/70 07/10/19 08:00 Pulse Ox 97 07/10/19 08:00 Weight - Most Recent: 100.698 kg I&O - Last 24 Hours: Intake & Output 07/09/19 07/10/19 07/10/19 22:59 06:59 14:59 Intake Total 1450 509 Output Total 700 1300 Balance 750 -791 Lab Results Last 24 Hours: Laboratory Results - last 24 hr 07/09/19 07/09/19 Range/Units 05:50 19:50 Hgb 9.5 L D (12.0-16.0) g/dL Hct 31.8 L (37.0-47.0) % Blood Type A POSITIVE Gel Antibody Screen Negative Crossmatch See Detail Issac Results Last 24 Hours: Microbiology 07/08/19 17:45 Clostridioides difficile (PCR) - Final Stool / Feces Med Orders - Current: Current Medications Acetaminophen (Tylenol) 650 mg PO Q6H PRN PRN Reason: Headache Last Admin: 07/08/19 20:24 Dose: 325 mg Enoxaparin Sodium (Lovenox) 40 mg SUBCUT DAILY [facility] Last Admin: 07/10/19 10:01 Dose: 40 mg Ferrous Sulfate (Ferrous Sulfate) 325 mg PO TID@0900,1100,1600 [facility] Last Admin: 07/10/19 10:01 Dose: 325 mg Levothyroxine Sodium (Synthroid) 200 mcg PO DAILY@0500 [facility] Last Admin: 07/10/19 05:04 Dose: 200 mcg Loperamide HCl (Imodium) 2 mg PO Q4H PRN PRN Reason: Diarrhea Meclizine HCl (Antivert) 25 mg PO Q8H PRN PRN Reason: Dizziness Multivitamins/Minerals (Vitamins And Minerals) 1 tab PO DAILY [facility] Last Admin: 07/10/19 10:01 Dose: 1 tab Omeprazole (Omeprazole) 20 mg PO BEDTIME [facility] Last Admin: 07/09/19 20:41 Dose: 20 mg Ondansetron HCl (Zofran) 4 mg IVPUSH Q6H PRN PRN Reason: Nausea/Vomiting Last Admin: 07/10/19 05:26 Dose: 4 mg Prochlorperazine Maleate (Compazine) 10 mg PO Q6HR PRN PRN Reason: Nausea Last Admin: 07/10/19 05:05 Dose: 10 mg Rosuvastatin Calcium (Crestor) 5 mg PO Q48H [facility] Last Admin: 07/09/19 17:52 Dose: 5 mg Sertraline HCl (Zoloft) 25 mg PO DAILY [facility] Last Admin: 07/10/19 10:01 Dose: 25 mg Sodium Chloride (Saline Flush) 10 ml FLUSH ASDIRECTED PRN PRN Reason: Keep Vein Open Last Admin: 07/09/19 14:01 Dose: 10 ml Tramadol HCl (Ultram) 50 mg PO Q6H PRN PRN Reason: Pain (moderate 4-6) Last Admin: 07/10/19 02:58 Dose: 50 mg Discontinued Medications Barium Sulfate (Readi-Cat 2) 900 ml PO ONETIME ONE Stop: 07/09/19 11:03 Last Admin: 07/09/19 11:10 Dose: 900 ml Ferrous Sulfate (Ferrous Sulfate) 325 mg PO TIDAC [facility] Last Admin: 07/09/19 11:33 Dose: Not Given Sodium Chloride (Normal Saline) 1,000 mls @ 75 mls/hr IV ASDIRECTED [facility] Last Admin: 07/10/19 01:19 Dose: 75 mls/hr Iopamidol (Isovue-300 (61%)) 100 ml IVPUSH ONETIME ONE Stop: 07/09/19 13:01 Last Admin: 07/09/19 13:22 Dose: 100 ml Levothyroxine Sodium (Synthroid) 200 mcg PO ACBREAKFAST [facility] Last Admin: 07/09/19 11:33 Dose: Not Given Tramadol HCl (Ultram) 50 mg PO Q6H [facility] Last Admin: 07/09/19 04:39 Dose: Not Given - Exam General: Alert, Oriented, Cooperative HEENT: Pupils Equal, Pupils Reactive, EOMI, Mucous Membr. Moist/[place] Lungs: Clear to Auscultation, Normal Respiratory Effort Cardiovascular: Regular Rate, Regular Rhythm Extremities: Normal Inspection, Normal Range of Motion, Non-Tender, No Pedal Edema, Normal Capillary Refill Sepsis Event Note - Evaluation Sepsis Screening Result: No Definite Risk - Focused Exam Vital Signs: Vital Signs Temp Pulse Resp BP BP Pulse Ox 07/10/19 08:00 36.7 C 68 20 125/70 97 07/09/19 23:38 36.6 C 68 19 129/70 91 L Date Exam was Performed: 07/10/19 Time Exam was Performed: : - Problem List Review Problem List Initiated/Reviewed/Updated: Yes - My Orders Last 24 Hours: My Active Orders 07/09/19 10:00 Rosuvastatin [Crestor] 5 mg PO Q48H 07/09/19 16:00 Ferrous Sulfate 325 mg PO TID@0900,1100,1600 07/09/19 21:00 Omeprazole 20 mg PO BEDTIME 07/10/19 05:00 Levothyroxine [Synthroid] 200 mcg PO DAILY@0500 07/10/19 09:00 Multivitamins/Minerals [Vitamins and Minerals] 1 tab PO DAILY Sertraline [Zoloft] 25 mg PO DAILY 07/10/19 09:53 CBC WITH AUTO DIFF [HEME] Routine 07/10/19 10:17 Meclizine [Antivert] 25 mg PO Q8H PRN - Plan Plan:: #. 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 We will not able to get sample for C. difficile toxin, ova and parasite CT scan of abdomen is unremarkable #. Anemia Patient has iron deficiency anemia. Had EGD which was unremarkable. Also had a colonoscopy Reason for this is not obvious Combination of diarrhea and anemia raises concern about celiac's disease #. Hypothyroidism on hormone replacement therapy Serum TSH is 28 indicating suboptimal replacement Patient has been on iron supplement which can affect absorption of levothyroxine #. Gastroesophageal reflux disease On proton pump inhibitor #. Dyslipidemia Continue statin Plan: Patient is still complaining of dizziness Posttransfusion hemoglobin was 9.5 I will proceed to obtain a repeat complete blood count Start patient on meclizine to help with dizziness Discontinue intravenous fluids I would transfuse patient with packed red blood cells and hemoglobin comes back less than 8.5
[2019-07-10] MEDS: Meclizine 12.5 MG Tab PO PRN (10:30)
[2019-07-10] MEDS ORDERED: Zolpidem 5 MG Tab PO PRN (19:34)
[2019-07-10] MEDS: Omeprazole 20 MG Cap.CR PO SCH (22:07)
[2019-07-11] MEDS: Levothyroxine 100 MCG Tab PO SCH (05:14)
[2019-07-11] MEDS: Multivitamins, Therapeutic with Minerals Tab PO SCH (09:03)
[2019-07-11] MEDS: Sertraline 50 MG Tab PO SCH (09:03)
[2019-07-11] MEDS: Ferrous Sulfate 325 MG Tab PO SCH ×2 (09:04→12:03)
[2019-07-11] MEDS: Meclizine 12.5 MG Tab PO PRN (09:04)
[2019-07-11] MEDS: traMADol 50 MG Tab PO PRN (09:04)
[2019-07-11] MEDS: Enoxaparin 40 MG/0.4 ML Syringe SUBCUT SCH (09:06)
--- NOTE | 2019-07-11 09:07 | PCM.DCSUM1 ---
Discharge Summary - Hospital Course Free Text/Narrative:: The patient was admitted from the clinic because of diarrhea which was treated as outpatient but failed to resolve. Patient was on Imodium as outpatient. She was also having nausea and vomiting. We started patient on intravenous fluid for rehydration. She was placed on anti-emetics. Stool sample was sent for C. difficile toxin and that came back negative. Patient had CT scan of the abdomen which was unremarkable. Patient was noted to be severely anemic hemoglobin of 7.7. She was transfused with one unit of packed red blood cell. Patient will require follow-up with gastroenterology to workup because of her anemia. She may require repeat colonoscopy, EGD, and possible capsule endoscopy. Consideration should be given to celiac disease. Patient was found to have significantly elevated TSH level of 28. We increased the dose of levothyroxine. Patient intake of levothyroxine and iron were advised to help with absorption. She will have repeat TSH as outpatient #. Diarrhea The patient was been having diarrhea for the past 2 weeks [employer] Since admission to the hospital, frequency of the diarrhea has reduced. #. Anemia Patient has iron deficiency anemia. Had EGD which was unremarkable. Also had a colonoscopy #. Hypothyroidism on hormone replacement therapy Serum TSH is 28 indicating suboptimal replacement Patient has been on iron supplement which can affect absorption of levothyroxine #. Gastroesophageal reflux disease On proton pump inhibitor #. Dyslipidemia Continue statin - Discharge Data Discharge Date: 07/11/19 Discharge Disposition: Home, Self-Care 01 Condition: Good - Referral to Home Health Primary Care Physician: Cristal Billy MD - Patient Instructions Diet: Usual Diet as Tolerated Activity: As Tolerated Driving: May Drive Today Showering/Bathing: May Shower Notify Provider of: Fever, Increased Pain - Discharge Plan Prescriptions/Med Rec: Levothyroxine Sodium [Euthyrox] 175 mcg PO DAILY #30 tablet Home Medications: Home Meds Calcium Carbonate [Tums] 2 tab PO Q4HR 05/07/18 [History] Multivitamin/Iron/Folic Acid [Centrum Adults Tablet] 1 tab PO DAILY 05/07/18 [ History] Omeprazole 20 mg PO DAILY 05/07/18 [History] Rosuvastatin [Crestor] 5 mg PO .EVERYOTHERDAY 05/07/18 [History] Sertraline [Zoloft] 25 mg PO DAILY 11/01/18 [History] Ferrous Sulfate [Slow Fe] 140 mg PO DAILY 07/08/19 [History] Iron Polysaccharide Complex [Iferex 150] 150 mg PO DAILY 07/08/19 [History] Loperamide [Imodium] 2 mg PO QID PRN 07/08/19 [History] Levothyroxine Sodium [Euthyrox] 175 mcg PO DAILY #30 tablet 07/11/19 [Rx] Patient Handouts: Levothyroxine tablets, Anemia Referrals: Cristal Billy MD [Primary Care Provider] - - Discharge Summary/Plan Comment DC Time >30 min.: No - Patient Data Vitals - Most Recent: Last Vital Signs Temp 37.1 C 07/11/19 08:09 Pulse 58 L 07/11/19 08:09 Resp 20 07/11/19 08:09 BP 124/67 07/11/19 08:09 Pulse Ox 96 07/11/19 08:09 Weight - Most Recent: 100.698 kg I&O - Last 24 hours: Intake & Output 07/10/19 07/11/19 07/11/19 22:59 06:59 14:59 Intake Total 0 Balance 0 Lab Results - Last 24 hrs: Laboratory Results - last 24 hr 07/10/19 Range/Units 10:35 WBC 5.2 (5.0-10.0) 10^3/uL RBC 4.00 L (4.2-5.4) 10^6/uL Hgb 9.1 L (12.0-16.0) g/dL Hct 30.7 L (37.0-47.0) % MCV 76.8 L (80-100) fL MCH 22.8 L (27.0-34.0) pg MCHC 29.6 L (33.0-35.0) g/dL Plt Count 346 (150-450) 10^3/uL Neut % (Auto) 64.3 (42.2-75.2) % Lymph % (Auto) 25.9 (20.5-50.1) % Reeves % (Auto) 6.9 (2-8) % Eos % (Auto) 2.5 (1.0-3.0) % Baso % (Auto) 0.4 (0.0-1.0) % LEW Results - Last 24 hrs: Microbiology 07/08/19 17:45 Clostridioides difficile (PCR) - Final Stool / Feces Clostridioides difficile Toxin Assay - Final Med Orders - Current: Current Medications Acetaminophen (Tylenol) 650 mg PO Q6H PRN PRN Reason: Headache Last Admin: 07/08/19 20:24 Dose: 325 mg Enoxaparin Sodium (Lovenox) 40 mg SUBCUT DAILY [facility] Last Admin: 07/10/19 10:01 Dose: 40 mg Ferrous Sulfate (Ferrous Sulfate) 325 mg PO TID@0900,1100,1600 [facility] [place] Last Admin: 07/10/19 16:38 Dose: 325 mg Levothyroxine Sodium (Synthroid) 200 mcg PO DAILY@0500 [facility] [place] Last Admin: 07/11/19 05:14 Dose: 200 mcg Loperamide HCl (Imodium) 2 mg PO Q4H PRN PRN Reason: Diarrhea Meclizine HCl (Antivert) 25 mg PO Q8H PRN PRN Reason: Dizziness Last Admin: 07/10/19 10:30 Dose: 25 mg Multivitamins/Minerals (Vitamins And Minerals) 1 tab PO DAILY [facility] [place] Last Admin: 07/10/19 10:01 Dose: 1 tab Omeprazole (Omeprazole) 20 mg PO BEDTIME [facility] [place] Last Admin: 07/10/19 22:07 Dose: 20 mg Ondansetron HCl (Zofran) 4 mg IVPUSH Q6H PRN PRN Reason: Nausea/Vomiting Last Admin: 07/10/19 05:26 Dose: 4 mg Prochlorperazine Maleate (Compazine) 10 mg PO Q6HR PRN PRN Reason: Nausea Last Admin: 07/10/19 05:05 Dose: 10 mg Rosuvastatin Calcium (Crestor) 5 mg PO Q48H [facility] [place] Last Admin: 07/09/19 17:52 Dose: 5 mg Sertraline HCl (Zoloft) 25 mg PO DAILY [facility] [place] Last Admin: 07/10/19 10:01 Dose: 25 mg Sodium Chloride (Saline Flush) 10 ml FLUSH ASDIRECTED PRN PRN Reason: Keep Vein Open Last Admin: 07/09/19 14:01 Dose: 10 ml Tramadol HCl (Ultram) 50 mg PO Q6H PRN PRN Reason: Pain (moderate 4-6) Last Admin: 07/10/19 02:58 Dose: 50 mg Zolpidem Tartrate (Ambien) 5 mg PO BEDTIME PRN PRN Reason: Sleep Discontinued Medications Barium Sulfate (Readi-Cat 2) 900 ml PO ONETIME ONE Stop: 07/09/19 11:03 Last Admin: 07/09/19 11:10 Dose: 900 ml Ferrous Sulfate (Ferrous Sulfate) 325 mg PO TIDAC [facility] [place] Last Admin: 07/09/19 11:33 Dose: Not Given Sodium Chloride (Normal Saline) 1,000 mls @ 75 mls/hr IV ASDIRECTED [facility] Last Admin: 07/10/19 01:19 Dose: 75 mls/hr Iopamidol (Isovue-300 (61%)) 100 ml IVPUSH ONETIME ONE Stop: 07/09/19 13:01 Last Admin: 07/09/19 13:22 Dose: 100 ml Levothyroxine Sodium (Synthroid) 200 mcg PO ACBREAKFAST [facility] [place] Last Admin: 07/09/19 11:33 Dose: Not Given Tramadol HCl (Ultram) 50 mg PO Q6H [facility] [place] Last Admin: 07/09/19 04:39 Dose: Not Given
[2019-07-11] MEDS: Rosuvastatin 10 MG Tab PO SCH (12:02)
== END 2019-07-11 11:00 | disposition home or self-care (01) | DRG 254 ==
LOC: DL.MS 16:16 → UNDOADMIN 16:16 → DL.MS 16:28 → UNDOADMIN 16:28 → DL.MS 17:09
PROVIDERS: ADMIT Hospitalist; ATTEND Hospitalist
PROC: 30233N1 Transfusion of Nonautologous Red Blood Cells into Peripheral Vein, Percutaneous Approach (ICD-10-PCS; principal; 2019-07-09)
DX: K90.0 Celiac disease (principal); R19.7 Diarrhea, unspecified; D50.9 Iron deficiency anemia, unspecified; E03.9 Hypothyroidism, unspecified; K21.9 Gastro-esophageal reflux disease without esophagitis; E78.5 Hyperlipidemia, unspecified; M19.90 Unspecified osteoarthritis, unspecified site; G43.909 Migraine, unspecified, not intractable, without status migrainosus; Z90.49 Acquired absence of other specified parts of digestive tract; Z98.51 Tubal ligation status; Z98.890 Other specified postprocedural states; Z79.899 Other long term (current) drug therapy; Z87.891 Personal history of nicotine dependence
CPT/HCPCS: 36415; 36430; 74177; 80053; 84443; 85014; 85018; 85025; 85027; 86850; 86900; 86901; 86920; 86922; 87328; 87329; 87493; 87899; A9270-GY; J1650; J2405; J7030; P9016; Q0164; Q9967

== ENCOUNTER 2019-07-27 17:09 | Emergency (ER) | payer BC ==
--- NOTE | 2019-07-27 17:36 | EDM.PDOC ---
<Speedy Shelby Alton - Last Filed: 07/27/19 17:31> ED HPI GENERAL MEDICAL PROBLEM - General Chief Complaint: Neurological Problem Stated Complaint: DONT FEEL GOOD Time Seen by Provider: 07/27/19 17:25 Source of Information: Reports: Patient History Limitations: Reports: No Limitations - History of Present Illness INITIAL COMMENTS - FREE TEXT/NARRATIVE: This 59 yo female patient reports to the ED with right sided tongue tingling, right sided arm weakness and a left sided headache. The patient reports all of her symptoms started today at 1600. The patient denies any recent falls or head injuries. The patient reports she has a history of migraine headaches, but does not remember any similar to this. The patient was admitted to our hospital for dehydration and anemia in the beginning of July. The patient reports her thyroid medication was changed. The patient reports she has not had a follow-up with her primary care facility since she was discharged from the hospital. The patient reports she has an EGD and Colonoscopy scheduled on August 16. The patient reports her right arm feels normal at this time, but she continues to have some tingling through the right side of her tongue. Onset: Today Onset Date: 07/27/19 Onset Time: 16:00 Duration: Constant Location: Reports: Head (left sided headache), Face (right sided tongue "tingling") Quality: Reports: Other Severity: Moderate Improves with: Reports: None Worsens with: Reports: None Context: Reports: Other Associated Symptoms: Reports: No Other Symptoms Left Headache Pain Score (Numeric/FACES): 5 - Related Data Allergies Allergy/AdvReac Type Severity Reaction Status Date / Time No Known Allergies Allergy Verified 07/27/19 17:14 Home Meds: Home Meds Calcium Carbonate [Tums] 2 tab PO Q4HR 05/07/18 [History] Multivitamin/Iron/Folic Acid [Centrum Adults Tablet] 1 tab PO DAILY 05/07/18 [ History] Omeprazole 20 mg PO DAILY 05/07/18 [History] Rosuvastatin [Crestor] 5 mg PO .EVERYOTHERDAY 05/07/18 [History] Sertraline [Zoloft] 25 mg PO DAILY 05/07/18 [History] Iron Polysaccharide Complex [Iferex 150] 150 mg PO DAILY 07/08/19 [History] Loperamide [Imodium] 2 mg PO QID PRN 07/08/19 [History] Levothyroxine Sodium [Euthyrox] 175 mcg PO DAILY #30 tablet 07/11/19 [Rx] Past Medical History HEENT History: Reports: Sinusitis Other HEENT History: wears corrective lenses Cardiovascular History: Reports: Blood Clots/VTE/DVT Respiratory History: Reports: Pneumonia, Recurrent Gastrointestinal History: Reports: None Genitourinary History: Reports: None [employer] History: Reports: 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 History: Reports: None Neurological History: Reports: Migraines Psychiatric History: Reports: Depression Endocrine/Metabolic History: Reports: Hypothyroidism Hematologic History: Reports: Anemia Immunologic History: Reports: None Oncologic (Cancer) History: Reports: None Dermatologic History: Reports: None - Infectious Disease History Infectious Disease History: Reports: Chicken Pox, Measles, Mumps - Past Surgical History Head Surgeries/Procedures: Reports: None HEENT Surgical History: Reports: None Cardiovascular Surgical History: Reports: None GI Surgical History: Reports: Cholecystectomy, Colonoscopy, EGD Female Surgical History: Reports: Breast Biopsy, Tubal Ligation Endocrine Surgical History: Reports: None Neurological Surgical History: Reports: None 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 Surgical History: Reports: None Oncologic Surgical History: Reports: Biopsy of Breast Social & Family History - Family History Family Medical History: Noncontributory HEENT: Reports: Cataract Cardiac: Reports: High Cholesterol Respiratory: Reports: None GI: Reports: None : Reports: None OBGYN: Reports: None 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: Reports: None Neurological: Reports: None Psychiatric: Reports: None Endocrine/Metabolic: Reports: Diabetes, Type I Hematologic: Reports: None Immunologic: Reports: None Dermatologic: Reports: None Oncologic: Reports: Colon - Tobacco Use Smoking Status *Q: Never Smoker Second Hand Smoke Exposure: No - Caffeine Use Caffeine Use: Reports: Coffee, Soda, Tea Other Caffeine Use: states drinks 1 Body [place] daily Caffeine Use Comment: COFFEE, 12OZ. 12 OZ SODA - Recreational Drug Use Recreational Drug Use: No ED ROS GENERAL - Review of Systems Review Of Systems: Comprehensive ROS is negative, except as noted in HPI. ED EXAM, NEURO - Physical Exam Exam: See Below Exam Limited By: No Limitations General Appearance: Alert, WD/WN, Anxious, Moderate Distress Eye Exam: Bilateral Eye: EOMI, Normal Inspection, PERRL Ears: Normal External Exam, Normal Canal, Hearing Grossly Normal, Normal TMs Nose: Normal Inspection, Normal Mucosa, No Blood Throat/Mouth: Normal Inspection, Normal Lips, Normal Teeth, Normal Gums, Normal Oropharynx, Normal Voice, No Airway Compromise Head Exam: Atraumatic, Normocephalic Neck: Normal Inspection, Supple, Non-Tender, Full Range of Motion Respiratory/Chest: No Respiratory Distress, Lungs Clear, Normal Breath Sounds, No Accessory Muscle Use, Chest Non-Tender Cardiovascular: Normal Peripheral Pulses, Regular Rate, Rhythm, No Edema, No Gallop, No JVD, No Murmur, No Rub GI/Abdominal: Normal Bowel Sounds, Soft, Non-Tender, No Organomegaly, No Distention, No Abnormal Bruit, No Mass (Female) Exam: Deferred Rectal (Female) Exam: Deferred Neurological: Alert, Normal Mood/Affect, Normal Dorsiflexion, CN II-XII Intact, Normal Plantar Flexion, Normal Gait, Normal Reflexes, No Motor/Sensory Deficits , Oriented x 3 Back Exam: Normal Inspection, Full Range of Motion, NT Extremities: Normal Inspection, Normal Range of Motion, Non-Tender, No Pedal Edema, Normal Capillary Refill Psychiatric: Anxious Skin Exam: Warm, Dry, Intact, Normal Color, No Rash Course - Vital Signs Last Recorded V/S: Last Vital Signs Temp 97.7 F 07/27/19 17:12 Pulse 86 07/27/19 17:12 Resp 18 07/27/19 17:12 BP 173/90 H 07/27/19 17:12 Pulse Ox 98 07/27/19 17:12 - Orders/Labs/Meds Orders: Active Orders 24 hr Category Date Time Status Head wo Cont [CT] Urgent Exams 07/27/19 17:29 Taken Labs: Laboratory Tests 07/27/19 07/27/19 07/27/19 Range/Units 17:34 17:34 17:34 WBC 6.1 (5.0-10.0) 10^3/uL RBC 4.79 (4.2-5.4) 10^6/uL Hgb 11.0 L D (12.0-16.0) g/dL Hct 36.2 L (37.0-47.0) % MCV 75.6 L (80-100) fL MCH 23.0 L (27.0-34.0) pg MCHC 30.4 L (33.0-35.0) g/dL Plt Count 298 (150-450) 10^3/uL Neut % (Auto) 62.3 (42.2-75.2) % Lymph % (Auto) 23.4 (20.5-50.1) % Mora % (Auto) 11.0 H (2-8) % Eos % (Auto) 2.8 (1.0-3.0) % Baso % (Auto) 0.5 (0.0-1.0) % PT 9.5 (9.0-12.0) SEC INR 0.9 (0.9-1.2) Sodium (135-145) mmol/L Potassium (3.6-5.0) mmol/L Chloride (101-111) mmol/L Carbon Dioxide (21.0-31.0) mmol/L Anion Gap BUN (7-18) mg/dL Creatinine (0.6-1.3) mg/dL Est Cr Clr Drug Dosing mL/min Estimated GFR (MDRD) BUN/Creatinine Ratio Glucose (74-105) mg/dL Calcium (8.4-10.2) mg/dl Total Bilirubin (0.2-1.0) mg/dL AST (10-42) IU/L ALT (10-60) IU/L Alkaline Phosphatase (42-121) IU/L Total Protein (6.7-8.2) g/dl Albumin (3.2-5.5) g/dl Globulin Albumin/Globulin Ratio TSH, Ultra Sensitive 0.24 L (0.45-5.33) uIu/mL 07/27/19 Range/Units 17:34 WBC (5.0-10.0) 10^3/uL RBC (4.2-5.4) 10^6/uL Hgb (12.0-16.0) g/dL Hct (37.0-47.0) % MCV (80-100) fL MCH (27.0-34.0) pg MCHC (33.0-35.0) g/dL Plt Count (150-450) 10^3/uL Neut % (Auto) (42.2-75.2) % Lymph % (Auto) (20.5-50.1) % Mora % (Auto) (2-8) % Eos % (Auto) (1.0-3.0) % Baso % (Auto) (0.0-1.0) % PT (9.0-12.0) SEC INR (0.9-1.2) Sodium 138 (135-145) mmol/L Potassium 4.1 (3.6-5.0) mmol/L Chloride 107 (101-111) mmol/L Carbon Dioxide 24.0 (21.0-31.0) mmol/L Anion Gap 11.1 BUN 19 H (7-18) mg/dL Creatinine 0.8 (0.6-1.3) mg/dL Est Cr Clr Drug Dosing 66.19 mL/min Estimated GFR (MDRD) > 60 BUN/Creatinine Ratio 23.75 Glucose 91 (74-105) mg/dL Calcium 9.0 (8.4-10.2) mg/dl Total Bilirubin 0.6 (0.2-1.0) mg/dL AST 22 (10-42) IU/L ALT 19 (10-60) IU/L Alkaline Phosphatase 88 (42-121) IU/L Total Protein 7.8 (6.7-8.2) g/dl Albumin 4.0 (3.2-5.5) g/dl Globulin 3.8 Albumin/Globulin Ratio 1.05 TSH, Ultra Sensitive (0.45-5.33) uIu/mL Meds: Medications Discontinued Medications Generic Name Dose Route Start Last Admin Trade Name Freq PRN Reason Stop Dose Admin Sodium Chloride 1,000 mls @ 999 mls/hr 07/27/19 18:22 07/27/19 18:28 Normal Saline IV 07/27/19 19:22 999 mls/hr .BOLUS ONE Administration Ketorolac Tromethamine 30 mg 07/27/19 18:22 07/27/19 18:29 Toradol IVPUSH 07/27/19 18:23 30 mg ONETIME ONE Administration Metoclopramide HCl 10 mg 07/27/19 19:25 07/27/19 19:31 Reglan IVPUSH 07/27/19 19:26 10 mg ONETIME ONE Administration Ondansetron HCl 4 mg 07/27/19 18:22 07/27/19 18:28 Zofran IVPUSH 07/27/19 18:23 4 mg ONETIME ONE Administration Oseltamivir Phosphate 75 mg 07/27/19 20:27 Tamiflu PO 07/27/19 20:28 ONETIME ONE Departure - Departure Disposition: Home, Self-Care 01 Clinical Impression: Influenza B - Discharge Information Instructions: Influenza, Adult, [id number] Forms: ED Department Discharge Additional Instructions: X: Tamiflu Drink plenty of fluids May use Tylenol and/or ibuprofen as directed for pain/fever Rest Home from work until feeling better and fever free for 24 hours Follow up with your primary care provider if no improvement Sepsis Event Note - Evaluation Sepsis Screening Result: No Definite Risk - Focused Exam Vital Signs: Vital Signs Temp Pulse Resp BP Pulse Ox 07/27/19 17:12 97.7 F 86 18 173/90 H 98 Date Exam was Performed: 07/27/19 Time Exam was Performed: 17:31 <Itzel Brock - Last Filed: 07/27/19 20:30> Course - Orders/Labs/Meds Labs: Laboratory Tests 07/27/19 07/27/19 07/27/19 Range/Units 17:34 17:34 17:34 WBC 6.1 (5.0-10.0) 10^3/uL RBC 4.79 (4.2-5.4) 10^6/uL Hgb 11.0 L D (12.0-16.0) g/dL Hct 36.2 L (37.0-47.0) % MCV 75.6 L (80-100) fL MCH 23.0 L (27.0-34.0) pg MCHC 30.4 L (33.0-35.0) g/dL Plt Count 298 (150-450) 10^3/uL Neut % (Auto) 62.3 (42.2-75.2) % Lymph % (Auto) 23.4 (20.5-50.1) % Mora % (Auto) 11.0 H (2-8) % Eos % (Auto) 2.8 (1.0-3.0) % Baso % (Auto) 0.5 (0.0-1.0) % PT 9.5 (9.0-12.0) SEC INR 0.9 (0.9-1.2) Sodium (135-145) mmol/L Potassium (3.6-5.0) mmol/L Chloride (101-111) mmol/L Carbon Dioxide (21.0-31.0) mmol/L Anion Gap BUN (7-18) mg/dL Creatinine (0.6-1.3) mg/dL Est Cr Clr Drug Dosing mL/min Estimated GFR (MDRD) BUN/Creatinine Ratio Glucose (74-105) mg/dL Calcium (8.4-10.2) mg/dl Total Bilirubin (0.2-1.0) mg/dL AST (10-42) IU/L ALT (10-60) IU/L Alkaline Phosphatase (42-121) IU/L Total Protein (6.7-8.2) g/dl Albumin (3.2-5.5) g/dl Globulin Albumin/Globulin Ratio TSH, Ultra Sensitive 0.24 L (0.45-5.33) uIu/mL 07/27/19 Range/Units 17:34 WBC (5.0-10.0) 10^3/uL RBC (4.2-5.4) 10^6/uL Hgb (12.0-16.0) g/dL Hct (37.0-47.0) % MCV (80-100) fL MCH (27.0-34.0) pg MCHC (33.0-35.0) g/dL Plt Count (150-450) 10^3/uL Neut % (Auto) (42.2-75.2) % Lymph % (Auto) (20.5-50.1) % Mora % (Auto) (2-8) % Eos % (Auto) (1.0-3.0) % Baso % (Auto) (0.0-1.0) % PT (9.0-12.0) SEC INR (0.9-1.2) Sodium 138 (135-145) mmol/L Potassium 4.1 (3.6-5.0) mmol/L Chloride 107 (101-111) mmol/L Carbon Dioxide 24.0 (21.0-31.0) mmol/L Anion Gap 11.1 BUN 19 H (7-18) mg/dL Creatinine 0.8 (0.6-1.3) mg/dL Est Cr Clr Drug Dosing 66.19 mL/min Estimated GFR (MDRD) > 60 BUN/Creatinine Ratio 23.75 Glucose 91 (74-105) mg/dL Calcium 9.0 (8.4-10.2) mg/dl Total Bilirubin 0.6 (0.2-1.0) mg/dL AST 22 (10-42) IU/L ALT 19 (10-60) IU/L Alkaline Phosphatase 88 (42-121) IU/L Total Protein 7.8 (6.7-8.2) g/dl Albumin 4.0 (3.2-5.5) g/dl Globulin 3.8 Albumin/Globulin Ratio 1.05 TSH, Ultra Sensitive (0.45-5.33) uIu/mL Influenza A: Negative Influenza B: POSITIVE - Re-Assessments/Exams Free Text/Narrative Re-Assessment/Exam: 07/27/19 19:28 Patient states the numbness and tingling has resolved but she continues to feel weak, nauseated, and a slight headache. Patient works at [employer] and is continuously exposed to influenza, strep throat, and viral illnesses. Patient declines the influenza testing at this time. States she has had chills at times , but denies fever. Denies cough. Patient will go home to rest. Patient encouraged to return to the ER with any worsening of problems. 07/27/19 19:30 Departure - Departure Time of Disposition: 20:00 Condition: Fair - Discharge Information *PRESCRIPTION DRUG MONITORING PROGRAM REVIEWED*: No *COPY OF PRESCRIPTION DRUG MONITORING REPORT IN PATIENT [place]: No Sepsis Event Note - Focused Exam Date Exam was Performed: 07/27/19 Time Exam was Performed: 20:28
[2019-07-27 18:03] LABS: ANION GAP 11.1; CHLORIDE,CL 107 mmol/L (101-111); SODIUM,NA 138 mmol/L (135-145)
[2019-07-27] MEDS ORDERED: Sodium Chloride 0.9% 1,000 ML IV ONE (18:22)
[2019-07-27] MEDS ORDERED: Ondansetron 4 MG/2 ML SDV IVPUSH ONE (18:22)
[2019-07-27] MEDS ORDERED: Ketorolac 30 MG/ML SDV IVPUSH ONE (18:22)
[2019-07-27] MEDS ORDERED: Metoclopramide 10 MG/2 ML SDV IVPUSH ONE (19:25)
[2019-07-27] MEDS ORDERED: Oseltamivir 75 MG Cap PO ONE (20:27)
== END 2019-07-27 20:41 | disposition home or self-care (01) ==
LOC: DL.ED 17:09
DX: J10.1 Influenza due to other identified influenza virus with other respiratory manifestations (principal); E03.9 Hypothyroidism, unspecified; F32.9 Major depressive disorder, single episode, unspecified; Z86.718 Personal history of other venous thrombosis and embolism; Z79.899 Other long term (current) drug therapy
CPT/HCPCS: 36415; 70450; 80053; 81003; 84443; 85025; 85610; 87804; 96361; 96374; 96375; 99285; A9270; J1885; J2405; J2765; J7030

== ENCOUNTER 2019-07-30 21:36 | Emergency (ER) | payer BC ==
--- NOTE | 2019-07-30 21:57 | EDM.PDOC ---
ED HPI GENERAL MEDICAL PROBLEM - General Chief Complaint: Eye Problems Stated Complaint: DROOPY EYE/DOUBLE VISION Time Seen by Provider: 07/30/19 21:52 Source of Information: Reports: Patient History Limitations: Reports: No Limitations - History of Present Illness INITIAL COMMENTS - FREE TEXT/NARRATIVE: onset left eye droop and left headache at 4pm while lying down. worried about stroke. had head scan few days ago for series of migraines. states left eye blurry and sees double which cause her to be off balance. denies dizziness. Left Eye Pain Score (Numeric/FACES): 2 - Related Data Allergies Allergy/AdvReac Type Severity Reaction Status Date / Time No Known Allergies Allergy Verified 07/30/19 21:48 Home Meds: Home Meds Calcium Carbonate [Tums] 2 tab PO Q4HR 05/07/18 [History] Multivitamin/Iron/Folic Acid [Centrum Adults Tablet] 1 tab PO DAILY 05/07/18 [ History] Omeprazole 20 mg PO DAILY 05/07/18 [History] Rosuvastatin [Crestor] 5 mg PO .EVERYOTHERDAY 05/07/18 [History] Sertraline [Zoloft] 25 mg PO DAILY 05/07/18 [History] Iron Polysaccharide Complex [Iferex 150] 150 mg PO DAILY 07/08/19 [History] Loperamide [Imodium] 2 mg PO QID PRN 07/08/19 [History] Levothyroxine Sodium [Euthyrox] 175 mcg PO DAILY #30 tablet 07/11/19 [Rx] Past Medical History HEENT History: Reports: Sinusitis Other HEENT History: wears corrective lenses Cardiovascular History: Reports: Blood Clots/VTE/DVT Respiratory History: Reports: Pneumonia, Recurrent Gastrointestinal History: Reports: None Genitourinary History: Reports: None 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: 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 History: Reports: None Neurological History: Reports: Migraines Psychiatric History: Reports: Depression Endocrine/Metabolic History: Reports: Hypothyroidism Hematologic History: Reports: Anemia Immunologic History: Reports: None Oncologic (Cancer) History: Reports: None Dermatologic History: Reports: None - Infectious Disease History Infectious Disease History: Reports: Chicken Pox, Measles, Mumps - Past Surgical History Head Surgeries/Procedures: Reports: None HEENT Surgical History: Reports: None Cardiovascular Surgical History: Reports: None GI Surgical History: Reports: Cholecystectomy, Colonoscopy, EGD Female Surgical History: Reports: Breast Biopsy, Tubal Ligation Endocrine Surgical History: Reports: None Neurological Surgical History: Reports: None 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 Surgical History: Reports: None Oncologic Surgical History: Reports: Biopsy of Breast Social & Family History - Family History Family Medical History: Noncontributory HEENT: Reports: Cataract Cardiac: Reports: High Cholesterol Respiratory: Reports: None GI: Reports: None : Reports: None OBGYN: Reports: None 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: Reports: None Neurological: Reports: None Psychiatric: Reports: None Endocrine/Metabolic: Reports: Diabetes, Type I Hematologic: Reports: None Immunologic: Reports: None Dermatologic: Reports: None Oncologic: Reports: Colon - Tobacco Use Smoking Status *Q: Never Smoker - Caffeine Use Caffeine Use: Reports: Coffee, Soda Other Caffeine Use: states drinks 1 Body [place] daily Caffeine Use Comment: COFFEE, 12OZ. 12 OZ SODA - Recreational Drug Use Recreational Drug Use: No ED ROS GENERAL - Review of Systems Review Of Systems: Comprehensive ROS is negative, except as noted in HPI. ED EXAM GENERAL W FULL EYE - Physical Exam Exam: See Below Exam Limited By: No Limitations General Appearance: Alert, WD/WN, Anxious, Mild Distress, Moderate Distress, Other (upset) Visual Acuity (R) 20/: 20 Visual Acuity (L) 20/: 25 With Correction: Yes Eyelids: Bilateral: Other (left lid droop) Conjunctiva & Sclera: Bilateral: Normal Appearance Cornea Exam: Bilateral: Normal Appearance Extraocular Movements: Bilateral: Intact Pupillary Size: Right: 4 mm, Bilateral: 6 mm Pupillary Reaction: Bilateral: Sluggish Anterior Chamber: Bilateral: Normal Appearance Ears: Hearing Grossly Normal Throat/Mouth: Normal Voice, No Airway Compromise Head: Atraumatic Neck: Non-Tender, Full Range of Motion Respiratory/Chest: No Respiratory Distress Cardiovascular: Bradycardia GI/Abdominal: Soft, Non-Tender Neurological: Alert, Oriented, Normal Cognition, Normal Gait, No Motor/Sensory Deficits Psychiatric: Flat Affect Skin Exam: Warm, Dry, Normal Color Lymphatic: No Adenopathy Course - Vital Signs Last Recorded V/S: Last Vital Signs Temp 37.1 C 07/30/19 21:50 Pulse 110 H 07/30/19 21:50 Resp 18 07/30/19 21:50 BP 155/87 H 07/30/19 21:50 Pulse Ox 99 07/30/19 21:50 - Orders/Labs/Meds Labs: Laboratory Tests 07/30/19 07/30/19 07/30/19 Range/Units 21:55 21:55 21:55 WBC 6.7 (5.0-10.0) 10^3/uL RBC 5.00 (4.2-5.4) 10^6/uL Hgb 11.4 L (12.0-16.0) g/dL Hct 37.0 (37.0-47.0) % MCV 74.0 L (80-100) fL MCH 22.8 L (27.0-34.0) pg MCHC 30.8 L (33.0-35.0) g/dL Plt Count 286 (150-450) 10^3/uL Neut % (Auto) 59.9 (42.2-75.2) % Lymph % (Auto) 26.2 (20.5-50.1) % [place] % (Auto) 10.7 H (2-8) % Eos % (Auto) 2.6 (1.0-3.0) % Baso % (Auto) 0.6 (0.0-1.0) % Sodium 137 (135-145) mmol/L Potassium 3.6 (3.6-5.0) mmol/L Chloride 105 (101-111) mmol/L Carbon Dioxide 24.0 (21.0-31.0) mmol/L Anion Gap 11.6 BUN 12 (7-18) mg/dL Creatinine 0.7 (0.6-1.3) mg/dL Est Cr Clr Drug Dosing 75.65 mL/min Estimated GFR (MDRD) > 60 BUN/Creatinine Ratio 17.14 Glucose 108 H (74-105) mg/dL Calcium 9.2 (8.4-10.2) mg/dl Total Bilirubin 0.6 (0.2-1.0) mg/dL AST 24 (10-42) IU/L ALT 20 (10-60) IU/L Alkaline Phosphatase 85 (42-121) IU/L C-Reactive Protein 0.7 (0.0-1.3) mg/dL Total Protein 7.8 (6.7-8.2) g/dl Albumin 3.9 (3.2-5.5) g/dl Globulin 3.9 Albumin/Globulin Ratio 1.00 - Re-Assessments/Exams Free Text/Narrative Re-Assessment/Exam: 07/30/19 23:[address] Reinoso @ [facility] who kindly accepted pt. Departure - Departure Time of Disposition: 23:23 Disposition: DC/Tfer to Acute Hospital 02 Condition: Fair Clinical Impression: Diplopia, Anisocoria, Blurred vision, left eye Ptosis Qualifiers: Laterality: left Qualified Code(s): H02.402 - Unspecified ptosis of left eyelid Headache Qualifiers: Headache type: unspecified Headache chronicity pattern: unspecified pattern Intractability: not intractable Qualified Code(s): R51 - Headache - Discharge Information Forms: Interfacility Transfer EMTALA Sepsis Event Note - Focused Exam Vital Signs: Vital Signs Temp Pulse Resp BP Pulse Ox 07/30/19 21:50 37.1 C 110 H 18 155/87 H 99 Date Exam was Performed: 07/30/19 Time Exam was Performed: 23:22
[2019-07-30 22:22] LABS: ANION GAP 11.6; CHLORIDE,CL 105 mmol/L (101-111); SODIUM,NA 137 mmol/L (135-145)
[2019-07-31] MEDS ORDERED: Ondansetron 4 MG/2 ML SDV IVPUSH ONE (00:35)
== END 2019-07-31 00:34 ==
LOC: DL.ED 21:36
DX: H53.2 Diplopia (principal); H02.402 Unspecified ptosis of left eyelid; H57.02 Anisocoria; H53.8 Other visual disturbances; E03.9 Hypothyroidism, unspecified; F32.9 Major depressive disorder, single episode, unspecified; Z86.718 Personal history of other venous thrombosis and embolism; Z79.899 Other long term (current) drug therapy
CPT/HCPCS: 36415; 70450; 80053; 85025; 86140; 96374; 99285; J2405

== ENCOUNTER 2019-09-19 01:28 | Emergency (ER) | payer BC ==
[2019-09-19] MEDS ORDERED: Ondansetron 4 MG Tab.DIS PO ONE (01:29)
[2019-09-19] MEDS: HYDROmorphone 1 MG/ML Syringe IVPUSH ONE ×2 (01:41→03:15)
[2019-09-19] MEDS: Ondansetron 4 MG/2 ML SDV IVPUSH ONE (01:41)
[2019-09-19] MEDS: Sodium Chloride 0.9% 1,000 ML IV ONE (01:41)
[2019-09-19 02:00] LABS: ANION GAP 16.1 mEq/L (7-13)
--- NOTE | 2019-09-19 02:36 | EDM.PDOC ---
ED HPI GENERAL MEDICAL PROBLEM - General Chief Complaint: Flank Pain Stated Complaint: BACK PAIN VOMMITTING Time Seen by Provider: 09/19/19 01:30 Source of Information: Reports: Patient History Limitations: Reports: No Limitations - History of Present Illness INITIAL COMMENTS - FREE TEXT/NARRATIVE: ED with c/o severe left flank pain radiating to mid lower abdomen, started around 1030, intermittent. Some dry heaves. No hx of stones. No prior similar symptoms. No diarrhea. no fever or chills. No cough or SOB. On plavix for hx of recent CVA in July. Left Flank Pain Score (Numeric/FACES): 10 - Related Data Allergies Allergy/AdvReac Type Severity Reaction Status Date / Time No Known Allergies Allergy Verified 09/19/19 01:29 Home Meds: Home Meds Calcium Carbonate [Tums] 2 tab PO Q4HR 05/07/18 [History] Multivitamin/Iron/Folic Acid [Centrum Adults Tablet] 1 tab PO DAILY 05/07/18 [ History] Omeprazole 20 mg PO DAILY 05/07/18 [History] Rosuvastatin [Crestor] 2.5 mg PO .EVERYOTHERDAY 05/07/18 [History] Sertraline [Zoloft] 25 mg PO DAILY 05/07/18 [History] Iron Polysaccharide Complex [Iferex 150] 150 mg PO DAILY 07/08/19 [History] Loperamide [Imodium] 2 mg PO QID PRN 07/08/19 [History] Aspirin [Aspirin EC] 325 mg PO DAILY 09/19/19 [History] Clopidogrel Bisulfate [Clopidogrel] 75 mg PO DAILY 09/19/19 [History] Levothyroxine Sodium [Euthyrox] 163 mcg PO DAILY 09/19/19 [History] Past Medical History HEENT History: Reports: Sinusitis Other HEENT History: wears corrective lenses Cardiovascular History: Reports: Blood Clots/VTE/DVT Respiratory History: Reports: Pneumonia, Recurrent Gastrointestinal History: Reports: None Genitourinary History: Reports: 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 History: Reports: None Neurological History: Reports: CVA, Migraines Psychiatric History: Reports: Depression Endocrine/Metabolic History: Reports: Hypothyroidism Hematologic History: Reports: Anemia Immunologic History: Reports: None Oncologic (Cancer) History: Reports: None Dermatologic History: Reports: None - Infectious Disease History Infectious Disease History: Reports: Chicken Pox, Measles, Mumps - Past Surgical History Head Surgeries/Procedures: Reports: None HEENT Surgical History: Reports: None Cardiovascular Surgical History: Reports: None GI Surgical History: Reports: Cholecystectomy, Colonoscopy, EGD Female Surgical History: Reports: Breast Biopsy, Tubal Ligation Endocrine Surgical History: Reports: None Neurological Surgical History: Reports: None 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 Surgical History: Reports: None Oncologic Surgical History: Reports: Biopsy of Breast Social & Family History - Family History Family Medical History: Noncontributory HEENT: Reports: Cataract Cardiac: Reports: High Cholesterol Respiratory: Reports: None GI: Reports: None : Reports: None OBGYN: Reports: None 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: Reports: None Neurological: Reports: None Psychiatric: Reports: None Endocrine/Metabolic: Reports: Diabetes, Type I Hematologic: Reports: None Immunologic: Reports: None Dermatologic: Reports: None Oncologic: Reports: Colon - Tobacco Use Smoking Status *Q: Never Smoker Second Hand Smoke Exposure: No - Caffeine Use Caffeine Use: Reports: None Other Caffeine Use: states drinks 1 Body [place] daily Caffeine Use Comment: COFFEE, 12OZ. 12 OZ SODA - Recreational Drug Use Recreational Drug Use: No Drug Use in Last 12 Months: No ED ROS GENERAL - Review of Systems Review Of Systems: Comprehensive ROS is negative, except as noted in HPI. ED EXAM, GI/ABD - Physical Exam Exam: See Below Exam Limited By: No Limitations General Appearance: Alert, Anxious, Moderate Distress Eyes: Bilateral: EOMI Ears: Normal External Exam Nose: Normal Inspection Throat/Mouth: Normal Inspection Neck: Normal Inspection Respiratory/Chest: No Respiratory Distress, Lungs Clear Cardiovascular: Normal Peripheral Pulses, Regular Rate, Rhythm GI/Abdominal Exam: Normal Bowel Sounds, Soft, Tender (suprapubic) Back Exam: CVA Tenderness (L) Extremities: Normal Inspection Neurological: Alert, Oriented Psychiatric: Anxious, Tearful Course - Vital Signs Last Recorded V/S: Last Vital Signs Temp 98.1 F 09/19/19 01:29 Pulse 95 09/19/19 01:29 Resp 32 H 09/19/19 01:29 BP 135/76 09/19/19 01:29 Pulse Ox 100 09/19/19 01:29 - Orders/Labs/Meds Orders: Active Orders 24 hr Category Date Time Status Abdomen Pelvis wo Cont [CT] Urgent Exams 09/19/19 02:38 Taken CULTURE URINE [RM] Stat Lab 09/19/19 02:21 Received Labs: Laboratory Tests 09/19/19 09/19/19 09/19/19 Range/Units 01:36 01:36 01:36 WBC 11.2 H (5.0-10.0) 10^3/uL RBC 4.44 (4.2-5.4) 10^6/uL Hgb 10.1 L (12.0-16.0) g/dL Hct 33.3 L (37.0-47.0) % MCV 75.0 L (80-100) fL MCH 22.7 L (27.0-34.0) pg MCHC 30.3 L (33.0-35.0) g/dL Plt Count 364 D (150-450) 10^3/uL Neut % (Auto) 80.7 H (42.2-75.2) % Lymph % (Auto) 12.2 L (20.5-50.1) % [place] % (Auto) 5.5 (2-8) % Eos % (Auto) 1.2 (1.0-3.0) % Baso % (Auto) 0.4 (0.0-1.0) % PT 9.4 (9.0-12.0) SEC INR 1.0 (0.9-1.2) Sodium 141 (136-145) mmol/L Potassium 4.1 (3.5-5.1) mmol/L Chloride 105 (98-107) mmol/L Carbon Dioxide 24 (21-32) mmol/L Anion Gap 16.1 H (7-13) mEq/L BUN 17 (7-18) mg/dL Creatinine 0.96 (0.55-1.02) mg/dL Est Cr Clr Drug Dosing 55.16 mL/min Estimated GFR (MDRD) 60 BUN/Creatinine Ratio 17.7 (No establ ref range) Glucose 123 H (74-99) mg/dL Calcium 8.4 L (8.5-10.1) mg/dL Total Bilirubin 0.2 (0.2-1.0) mg/dL AST 17 (15-37) U/L ALT 27 (14-59) U/L Alkaline Phosphatase 104 (46-116) U/L Total Protein 7.1 (6.4-8.2) g/dL Albumin 3.4 (3.4-5.0) g/dL Globulin 3.7 Albumin/Globulin Ratio 0.9 Amylase 61 (25-115) U/L Lipase 171 (73-393) U/L Urine Color (YELLOW) Urine Appearance (CLEAR) Urine pH (5.0-9.0) Ur Specific [place] (1.005-1.030) Urine Protein (NEGATIVE) Urine Glucose (UA) (NEGATIVE) Urine Ketones (NEGATIVE) Urine Occult Blood (NEGATIVE) Urine Nitrite (NEGATIVE) Urine Bilirubin (NEGATIVE) Urine Urobilinogen (0.2-1.0) mg/dL Ur Leukocyte Esterase (NEGATIVE) Urine RBC /HPF Urine WBC (0-5/HPF) /HPF Ur Epithelial Cells (NOT SEEN) /HPF Amorphous Sediment (NOT SEEN) /HPF Urine Bacteria (0-FEW/HPF) /HPF Urine Mucus (NOT SEEN) /LPF 09/19/19 Range/Units 02:21 WBC (5.0-10.0) 10^3/uL RBC (4.2-5.4) 10^6/uL Hgb (12.0-16.0) g/dL Hct (37.0-47.0) % MCV (80-100) fL MCH (27.0-34.0) pg MCHC (33.0-35.0) g/dL Plt Count (150-450) 10^3/uL Neut % (Auto) (42.2-75.2) % Lymph % (Auto) (20.5-50.1) % [place] % (Auto) (2-8) % Eos % (Auto) (1.0-3.0) % Baso % (Auto) (0.0-1.0) % PT (9.0-12.0) SEC INR (0.9-1.2) Sodium (136-145) mmol/L Potassium (3.5-5.1) mmol/L Chloride (98-107) mmol/L Carbon Dioxide (21-32) mmol/L Anion Gap (7-13) mEq/L BUN (7-18) mg/dL Creatinine (0.55-1.02) mg/dL Est Cr Clr Drug Dosing mL/min Estimated GFR (MDRD) BUN/Creatinine Ratio (No establ ref range) Glucose (74-99) mg/dL Calcium (8.5-10.1) mg/dL Total Bilirubin (0.2-1.0) mg/dL AST (15-37) U/L ALT (14-59) U/L Alkaline Phosphatase (46-116) U/L Total Protein (6.4-8.2) g/dL Albumin (3.4-5.0) g/dL Globulin Albumin/Globulin Ratio Amylase (25-115) U/L Lipase (73-393) U/L Urine Color Yellow (YELLOW) Urine Appearance Cloudy (CLEAR) Urine pH 6.0 (5.0-9.0) Ur Specific [place] 1.025 (1.005-1.030) Urine Protein Negative (NEGATIVE) Urine Glucose (UA) Negative (NEGATIVE) Urine Ketones 15 H (NEGATIVE) Urine Occult Blood Large H (NEGATIVE) Urine Nitrite Negative (NEGATIVE) Urine Bilirubin Negative (NEGATIVE) Urine Urobilinogen 0.2 (0.2-1.0) mg/dL Ur Leukocyte Esterase Trace H (NEGATIVE) Urine RBC >100 H /HPF Urine WBC 5-10 H (0-5/HPF) /HPF Ur Epithelial Cells Moderate H (NOT SEEN) /HPF Amorphous Sediment Few (NOT SEEN) /HPF Urine Bacteria Few (0-FEW/HPF) /HPF Urine Mucus Rare (NOT SEEN) /LPF Meds: Medications Discontinued Medications Generic Name Dose Route Start Last Admin Trade Name Freq PRN Reason Stop Dose Admin Ciprofloxacin 500 mg 09/19/19 04:14 09/19/19 04:25 Ciprofloxacin Hcl PO 09/19/19 04:15 500 mg ONETIME ONE Administration Hydromorphone HCl 1 mg 09/19/19 01:31 09/19/19 01:41 Dilaudid IVPUSH 09/19/19 01:32 1 mg ONETIME ONE Administration Hydromorphone HCl 1 mg 09/19/19 03:10 09/19/19 03:15 Dilaudid IVPUSH 09/19/19 03:11 1 mg ONETIME ONE Administration Sodium Chloride 1,000 mls @ 999 mls/hr 09/19/19 01:32 09/19/19 01:41 Normal Saline IV 09/19/19 02:32 999 mls/hr .BOLUS ONE Administration Ondansetron HCl 4 mg 09/19/19 01:31 09/19/19 01:41 Zofran IVPUSH 09/19/19 01:32 4 mg ONETIME ONE Administration Ondansetron HCl Confirm 09/19/19 04:06 09/19/19 04:24 Zofran Odt Administered 09/19/19 04:07 Not Given Dose 8 mg .ROUTE .STK-MED ONE Oxycodone/Acetaminophen Confirm 09/19/19 04:06 09/19/19 04:24 Percocet 325-5 Mg Administered 09/19/19 04:07 Not Given Dose 2 tab .ROUTE .STK-MED ONE Tamsulosin HCl 0.4 mg 09/19/19 04:14 09/19/19 04:25 Flomax PO 09/19/19 04:15 0.4 mg ONETIME ONE Administration - Radiology Interpretation Free Text/Narrative:: [facility] Final Radiology Report Call: [phone] assistance Online chat: [email or web address] Name: CASANDRA AYERS Age: 59Years F Date: 09/19/2019 SSN: -- : [id number] Study: CT ABDOMEN/PELVIS WO Requesting Physician: MELISSA GALAVIZ Images: [id number] Addl Studies: Provided Clinical History: Contrast: Without Contrast Medium: Contrast Amount: Contrast Method: Page 1 of 2 PROCEDURE INFORMATION: Exam: CT Abdomen And Pelvis Without Contrast Exam date and time: 09/19/2019 3:01 AM Age: 59 years old Clinical indication: Other: Right flank pain, hematuria TECHNIQUE: Imaging protocol: Computed tomography of the abdomen and pelvis without contrast. Radiation optimization: All CT scans at this facility use at least one of these dose optimization techniques: automated exposure control; mA and/or kV adjustment per patient size (includes targeted exams where dose is matched to clinical indication); or iterative reconstruction. COMPARISON: CT Abdomen Pelvis w Cont 07/09/2019 1:00 PM FINDINGS: Mediastinum: A large hiatal hernia is present. The hiatal hernia has not significantly changed. Liver: Normal. No mass. Gallbladder and bile ducts: Evidence of prior cholecystectomy. Pancreas: Normal. No ductal dilation. Spleen: Normal. No splenomegaly. Adrenals: Normal. No mass. Kidneys and ureters: Cortical scarring involving the right kidney. Right renal pelvicaliectasis versus peripelvic/parapelvic cystic changes. The appearance is not significantly different. There is mild hydronephrosis of the left kidney. Suggestion of a component of pelviectasis versus parapelvic cystic changes involving the left kidney. Mild left hydroureter, identified to the proximal component where there is a small calculus that measures 2.6 mm. Mild left perinephric inflammatory stranding. Stomach and bowel: Colonic diverticulosis is present. No CT evidence of acute diverticulitis. Appendix: No evidence of appendicitis. Intraperitoneal space: See Lymph Nodes Finding. CASANDRA AYERS | Final Radiology Report CONFIDENTIALITY STATEMENT This report is intended only for use by the referring physician, and only in accordance with law. If you received this in error, call [phone]. Page 2 of 2 Vasculature: Unremarkable. No abdominal aortic aneurysm. Lymph nodes: There are multiple nonspecific, non pathologically enlarged but prominent lymph nodes in the mesentery. There are no mesenteric lymph nodes of pathologic dimensions. There is a diffuse inflammatory stranding throughout the central mesentery as well. These findings are nonspecific, and most likely represent sequela of viral adenitis. The appearance of this "jackeline mesentery" has not significantly changed. Bladder: Unremarkable as visualized. Reproductive: Unremarkable as visualized. Bones/joints: There are degenerative changes involving the spine, SI joints, hips. Soft tissues: Small, fat-containing umbilical hernia. IMPRESSION: 1. 2.6 mm calculus in the proximal aspect of the left ureter, that causes mild hydronephrosis of the left kidney, and mild left hydroureter. 2. Mild left perinephric inflammatory stranding. Recommend clinical correlation to exclude changes of acute or subacute pyelonephritis. Thank you for allowing us to participate in the care of your patient. Dictated and Authenticated by: Jose Antonio Liriano MD 09/19/2019 3:50 AM Central Time ([place] & [place]) - Re-Assessments/Exams Free Text/Narrative Re-Assessment/Exam: 09/19/19 04:28 Results reviewed with patient and son. Departure - Departure Time of Disposition: 04:07 Disposition: Home, Self-Care 01 Condition: Good Clinical Impression: UTI, Urinary tract infectious disease, Kidney stone on left side - Discharge Information *PRESCRIPTION DRUG MONITORING PROGRAM REVIEWED*: No *COPY OF PRESCRIPTION DRUG MONITORING REPORT IN PATIENT [place]: No Instructions: Flank Pain, Adult, [id number] Forms: ED Department Discharge Additional Instructions: flomax 0.4mg one daily zofran 4mg ODT one every 6 hours as needed for nausea Hydrocodone/apap 5/325 one every 6 hours as needed for severe pain cipro 500mg one twice daily for one week clinic follow up on Friday increase fluid intake Sepsis Event Note - Evaluation Sepsis Screening Result: No Definite Risk - Focused Exam Vital Signs: Vital Signs Temp Pulse Resp BP Pulse Ox 09/19/19 01:29 98.1 F 95 32 H 135/76 100 Date Exam was Performed: 09/19/19 Time Exam was Performed: 04:27 - My Orders Last 24 Hours: My Active Orders 09/19/19 02:21 CULTURE URINE [RM] Stat 09/19/19 02:38 Abdomen Pelvis wo Cont [CT] Urgent - Assessment/Plan Last 24 Hours: My Active Orders 09/19/19 02:21 CULTURE URINE [RM] Stat 09/19/19 02:38 Abdomen Pelvis wo Cont [CT] Urgent
[2019-09-19] MEDS: Ondansetron 4 MG Tab.DIS ONE (04:24)
[2019-09-19] MEDS: Acetaminophen/oxyCODONE 325-5 MG Tab ONE (04:24)
[2019-09-19] MEDS: Ciprofloxacin 500 MG Tab PO ONE (04:25)
[2019-09-19] MEDS: Tamsulosin 0.4 MG Cap.ER PO ONE (04:25)
== END 2019-09-19 04:29 | disposition home or self-care (01) ==
LOC: DL.ED 01:28
DX: N13.2 Hydronephrosis with renal and ureteral calculous obstruction (principal); N39.0 Urinary tract infection, site not specified; F32.9 Major depressive disorder, single episode, unspecified; E03.9 Hypothyroidism, unspecified; Z86.718 Personal history of other venous thrombosis and embolism; Z90.49 Acquired absence of other specified parts of digestive tract; Z79.899 Other long term (current) drug therapy; Z79.02 Long term (current) use of antithrombotics/antiplatelets; Z79.82 Long term (current) use of aspirin
CPT/HCPCS: 36415; 74176; 80053; 81001; 82150; 83690; 85025; 85610; 87086; 96361; 96374; 96375; 96376; 99284; A9270; J1170; J2405; J7030

== ENCOUNTER 2020-03-05 10:22 | Emergency (ER) | payer BC ==
--- NOTE | 2020-03-05 11:24 | EDM.PDOC ---
ED HPI GENERAL MEDICAL PROBLEM - General Chief Complaint: Neurological Problem Stated Complaint: SHAKY TINGLY BLURRY VISION THINKS STROKE Time Seen by Provider: 03/05/20 10:50 Source of Information: Reports: Patient, RN, RN Notes Reviewed History Limitations: Reports: No Limitations - History of Present Illness INITIAL COMMENTS - FREE TEXT/NARRATIVE: Patient presents to ER with vague complaints of not feeling right when she woke up this morning. Patient states she felt as though she was unbalanced right away when she woke up this morning. Patient states she had ischemic strokes in July that were not picked up on CT, but were picked up on MRI. Patient states she did not have many symptoms at that time either. Patient states she was going to drive to [place] for MRI today, but began having visual disturbance on her way, so decided to come here. Patient states she did have some tingling to the right arm and right cheek. Patient complains of a dull pain to the right back of the head. Otherwise denies any pain. Patient states her blood pressure is elevated compared to what it normally is today. Patient denies any weakness with respiratory technician or walking. Patient states upon arrival to the ER all symptoms have resolved. Onset: Today, Sudden - Related Data Allergies Allergy/AdvReac Type Severity Reaction Status Date / Time No Known Allergies Allergy Verified 03/05/20 10:53 Home Meds: Home Meds Calcium Carbonate [Tums] 2 tab PO Q4HR 05/07/18 [History] Multivitamin/Iron/Folic Acid [Centrum Adults Tablet] 1 tab PO DAILY 05/07/18 [History] Omeprazole 20 mg PO DAILY 05/07/18 [History] Rosuvastatin [Crestor] 5 mg PO BEDTIME 05/07/18 [History] Sertraline [Zoloft] 25 mg PO DAILY 05/07/18 [History] Iron Polysaccharide Complex [Iferex 150] 150 mg PO DAILY 07/08/19 [History] Loperamide [Imodium] 2 mg PO QID PRN 07/08/19 [History] Aspirin [Aspirin EC] 325 mg PO DAILY 09/19/19 [History] Clopidogrel Bisulfate [Clopidogrel] 75 mg PO DAILY 09/19/19 [History] Levothyroxine Sodium [Euthyrox] 150 mcg PO DAILY 09/19/19 [History] Past Medical History HEENT History: Reports: Sinusitis Other HEENT History: wears corrective lenses Cardiovascular History: Reports: Blood Clots/VTE/DVT Respiratory History: Reports: Pneumonia, Recurrent Gastrointestinal History: Reports: None Genitourinary History: Reports: None 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: 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 History: Reports: None Neurological History: Reports: CVA, Migraines Psychiatric History: Reports: Depression Endocrine/Metabolic History: Reports: Hypothyroidism Hematologic History: Reports: Anemia Immunologic History: Reports: None Oncologic (Cancer) History: Reports: None Dermatologic History: Reports: None - Infectious Disease History Infectious Disease History: Reports: None - Past Surgical History Head Surgeries/Procedures: Reports: None HEENT Surgical History: Reports: None Cardiovascular Surgical History: Reports: None GI Surgical History: Reports: Cholecystectomy, Colonoscopy, EGD Female Surgical History: Reports: Breast Biopsy, Tubal Ligation Endocrine Surgical History: Reports: None Neurological Surgical History: Reports: None 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 Surgical History: Reports: None Oncologic Surgical History: Reports: Biopsy of Breast Social & Family History - Family History Family Medical History: Noncontributory HEENT: Reports: Cataract Cardiac: Reports: High Cholesterol Respiratory: Reports: None GI: Reports: None : Reports: None OBGYN: Reports: None 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: Reports: None Neurological: Reports: None Psychiatric: Reports: None Endocrine/Metabolic: Reports: Diabetes, Type I Hematologic: Reports: None Immunologic: Reports: None Dermatologic: Reports: None Oncologic: Reports: Colon - Tobacco Use Smoking Status *Q: Never Smoker Second Hand Smoke Exposure: No - Caffeine Use Caffeine Use: Reports: None Other Caffeine Use: states drinks 1 Body [place] daily Caffeine Use Comment: COFFEE, 12OZ. 12 OZ SODA - Recreational Drug Use Recreational Drug Use: No ED ROS GENERAL - Review of Systems Review Of Systems: Comprehensive ROS is negative, except as noted in HPI. ED EXAM, NEURO - Physical Exam Exam: See Below Exam Limited By: No Limitations General Appearance: Alert, WD/WN, No Apparent Distress, Anxious Eye Exam: Bilateral Eye: EOMI, PERRL (Right 4, brisk, Left - 3 brisk) Ears: Normal External Exam, Hearing Grossly Normal Nose: Normal Inspection Throat/Mouth: Normal Inspection, Normal Voice, No Airway Compromise Head Exam: Atraumatic, Normocephalic Neck: Normal Inspection, Supple, Non-Tender, Full Range of Motion Respiratory/Chest: No Respiratory Distress, Lungs Clear, Normal Breath Sounds, No Accessory Muscle Use, Chest Non-Tender Cardiovascular: Normal Peripheral Pulses, Regular Rate, Rhythm, No Edema, No Gallop, No JVD, No Murmur, No Rub GI/Abdominal: Normal Bowel Sounds, Soft, Non-Tender, No Organomegaly, No Distention, No Abnormal Bruit, No Mass (Female) Exam: Deferred Rectal (Female) Exam: Deferred Neurological: Alert, Normal Mood/Affect, Normal Dorsiflexion, CN II-XII Intact, Normal Plantar Flexion, Normal Gait, Normal Reflexes, No Motor/Sensory Deficits, Oriented x 3 Back Exam: Normal Inspection, Full Range of Motion, NT Extremities: Normal Inspection, Normal Range of Motion, Non-Tender, No Pedal Edema, Normal Capillary Refill Psychiatric: Normal Affect, Normal Mood, Anxious Skin Exam: Warm, Dry, Intact, Normal Color, No Rash Course - Vital Signs Last Recorded V/S: Last Vital Signs Temp 98.8 F 03/05/20 10:36 Pulse 72 03/05/20 10:36 Resp 20 03/05/20 10:36 BP 156/90 H 03/05/20 10:36 Pulse Ox 100 03/05/20 10:36 - Orders/Labs/Meds Orders: Active Orders 24 hr Category Date Time Status CULTURE URINE [RM] Stat Lab 03/05/20 11:30 Received Labs: Laboratory Tests 03/05/20 03/05/20 03/05/20 Range/Units 11:15 11:15 11:15 WBC 6.0 (5.0-10.0) 10^3/uL RBC 4.75 (4.2-5.4) 10^6/uL Hgb 13.2 D (12.0-16.0) g/dL Hct 41.7 (37.0-47.0) % MCV 87.8 D (80-100) fL MCH 27.8 (27.0-34.0) pg MCHC 31.7 L (33.0-35.0) g/dL Plt Count 276 D (150-450) 10^3/uL Neut % (Auto) 59.3 (42.2-75.2) % Lymph % (Auto) 25.5 (20.5-50.1) % [place] % (Auto) 9.8 H (2-8) % Eos % (Auto) 4.7 H (1.0-3.0) % Baso % (Auto) 0.7 (0.0-1.0) % PT 9.4 (9.0-12.0) SEC INR 1.0 (0.9-1.2) Sodium 140 (136-145) mmol/L Potassium 4.4 (3.5-5.1) mmol/L Chloride 105 (98-107) mmol/L Carbon Dioxide 27 (21-32) mmol/L Anion Gap 12.4 (7-13) mEq/L BUN 16 (7-18) mg/dL Creatinine 0.96 (0.55-1.02) mg/dL Est Cr Clr Drug Dosing 55.16 mL/min Estimated GFR (MDRD) 60 BUN/Creatinine Ratio 16.7 (No establ ref range) Glucose 92 (74-99) mg/dL Calcium 9.0 (8.5-10.1) mg/dL Total Bilirubin 0.3 (0.2-1.0) mg/dL AST 23 (15-37) U/L ALT 33 (14-59) U/L Alkaline Phosphatase 99 (46-116) U/L Troponin I < 0.017 (0.000-0.056) ng/mL Total Protein 7.5 (6.4-8.2) g/dL Albumin 3.5 (3.4-5.0) g/dL Globulin 4.0 Albumin/Globulin Ratio 0.9 Urine Color (YELLOW) Urine Appearance (CLEAR) Urine pH (5.0-9.0) Ur Specific [place] (1.005-1.030) Urine Protein (NEGATIVE) Urine Glucose (UA) (NEGATIVE) Urine Ketones (NEGATIVE) Urine Occult Blood (NEGATIVE) Urine Nitrite (NEGATIVE) Urine Bilirubin (NEGATIVE) Urine Urobilinogen (0.2-1.0) mg/dL Ur Leukocyte Esterase (NEGATIVE) Urine RBC /HPF Urine WBC (0-5/HPF) /HPF Ur Epithelial Cells (NOT SEEN) /HPF Urine Bacteria (0-FEW/HPF) /HPF 08/30/20 Range/Units 11:30 WBC (5.0-10.0) 10^3/uL RBC (4.2-5.4) 10^6/uL Hgb (12.0-16.0) g/dL Hct (37.0-47.0) % MCV (80-100) fL MCH (27.0-34.0) pg MCHC (33.0-35.0) g/dL Plt Count (150-450) 10^3/uL Neut % (Auto) (42.2-75.2) % Lymph % (Auto) (20.5-50.1) % [place]ahan % (Auto) (2-8) % Eos % (Auto) (1.0-3.0) % Baso % (Auto) (0.0-1.0) % PT (9.0-12.0) SEC INR (0.9-1.2) Sodium (136-145) mmol/L Potassium (3.5-5.1) mmol/L Chloride (98-107) mmol/L Carbon Dioxide (21-32) mmol/L Anion Gap (7-13) mEq/L BUN (7-18) mg/dL Creatinine (0.55-1.02) mg/dL Est Cr Clr Drug Dosing mL/min Estimated GFR (MDRD) BUN/Creatinine Ratio (No establ ref range) Glucose (74-99) mg/dL Calcium (8.5-10.1) mg/dL Total Bilirubin (0.2-1.0) mg/dL AST (15-37) U/L ALT (14-59) U/L Alkaline Phosphatase (46-116) U/L Troponin I (0.000-0.056) ng/mL Total Protein (6.4-8.2) g/dL Albumin (3.4-5.0) g/dL Globulin Albumin/Globulin Ratio Urine Color Yellow (YELLOW) Urine Appearance Clear (CLEAR) Urine pH 5.5 (5.0-9.0) Ur Specific [place] 1.025 (1.005-1.030) Urine Protein Negative (NEGATIVE) Urine Glucose (UA) Negative (NEGATIVE) Urine Ketones Negative (NEGATIVE) Urine Occult Blood Negative (NEGATIVE) Urine Nitrite Negative (NEGATIVE) Urine Bilirubin Negative (NEGATIVE) Urine Urobilinogen 0.2 (0.2-1.0) mg/dL Ur Leukocyte Esterase Trace H (NEGATIVE) Urine RBC Not seen /HPF Urine WBC 5-10 H (0-5/HPF) /HPF Ur Epithelial Cells Many H (NOT SEEN) /HPF Urine Bacteria Moderate H (0-FEW/HPF) /HPF - Re-Assessments/Exams Free Text/Narrative Re-Assessment/Exam: 03/05/20 13:07 Discussed patient case with Dr. Catalan, neurology at [facility]. He states he will discuss the case with Dr. Yu in the morning and the patient will be contacted tomorrow morning. If the patient has any further symptoms, the patient is to return to the ER immediately. Departure - Departure Time of Disposition: 13:08 Disposition: Home, Self-Care 01 Condition: Good Clinical Impression: TIA (transient ischemic attack), UTI, Urinary tract infectious disease, Bacterial vaginosis - Discharge Information *PRESCRIPTION DRUG MONITORING PROGRAM REVIEWED*: No *COPY OF PRESCRIPTION DRUG MONITORING REPORT IN PATIENT [place]: No Instructions: Transient Ischemic Attack, [id number], Bacterial Vaginosis, [id number], Urinary Tract Infection, Adult, [id number] Forms: ED Department Discharge Additional Instructions: Rx: Plavix, metronidazole, Macrobid Do not drink alcohol while taking metronidazole Drink plenty of water Dr. Yu's office will call you tomorrow morning some time to discuss a plan If you experience any further symptoms, return to ER immediately Rest Sepsis Event Note (ED) - Evaluation Sepsis Screening Result: No Definite Risk - Focused Exam Vital Signs: Vital Signs Temp Pulse Resp BP Pulse Ox 03/05/20 10:36 98.8 F 72 20 156/90 H 100 - My Orders Last 24 Hours: My Active Orders 03/05/20 11:30 CULTURE URINE [RM] Stat - Assessment/Plan Last 24 Hours: My Active Orders 03/05/20 11:30 CULTURE URINE [RM] Stat
--- NOTE | 2020-03-05 11:41 | CT ---
PROCEDURE INFORMATION: Exam: CT Head Without Contrast Exam date and time: 03/05/2020 11:25 AM Age: 59 years old Clinical indication: Other: Unsteaady, blurred vision; Additional info: Unsteady, blurred vision TECHNIQUE: Imaging protocol: Computed tomography of the head without contrast. Radiation optimization: All CT scans at this facility use at least one of these dose optimization techniques: automated exposure control; mA and/or kV adjustment per patient size (includes targeted exams where dose is matched to clinical indication); or iterative reconstruction. COMPARISON: No relevant prior studies available. FINDINGS: Brain: No mass, intracranial hemorrhage, or brain edema. No transcortical defect. Normal cerebellum and brainstem. Ventricles: Normal. Bones/joints: Normal. Sinuses: The partly visualized sinuses are clear. Mastoid air cells: Normal. Soft tissues: Unremarkable. IMPRESSION: Normal.
[2020-03-05 12:02] LABS: ANION GAP 12.4 mEq/L (7-13); CHLORIDE,CL 105 mmol/L (98-107); SODIUM,NA 140 mmol/L (136-145)
== END 2020-03-05 13:23 | disposition home or self-care (01) ==
LOC: DL.ED 10:22
DX: G45.9 Transient cerebral ischemic attack, unspecified (principal); N39.0 Urinary tract infection, site not specified; N76.0 Acute vaginitis; E03.9 Hypothyroidism, unspecified; F32.9 Major depressive disorder, single episode, unspecified; Z88.5 Allergy status to narcotic agent; Z79.899 Other long term (current) drug therapy; Z79.82 Long term (current) use of aspirin; Z79.02 Long term (current) use of antithrombotics/antiplatelets
CPT/HCPCS: 36415; 70450; 80053; 81001; 84484; 85025; 85610; 87086; 87088; 99285-25

== ENCOUNTER 2020-10-22 04:08 | Emergency (ER) | payer BC ==
[2020-10-22] MEDS ORDERED: Sodium Chloride 0.9% 10 ML Syringe FLUSH PRN (04:18)
[2020-10-22] MEDS ORDERED: fentaNYL 100 MCG/2 ML SDV IVPUSH ONE ×2 (04:19→05:30)
[2020-10-22] MEDS ORDERED: Sodium Chloride 0.9% 1,000 ML IV ONE (04:19)
--- NOTE | 2020-10-22 04:30 | EDM.PDOC ---
ED HPI GENERAL MEDICAL PROBLEM - General Chief Complaint: Flank Pain Stated Complaint: SEVERE ABDOMINAL PAIN Time Seen by Provider: 10/22/20 04:22 Source of Information: Reports: Patient History Limitations: Reports: No Limitations - History of Present Illness INITIAL COMMENTS - FREE TEXT/NARRATIVE: Patient is here for severe left flank pain. It started about 2 hours ago and has been getting worse. It starts in her left flank and radiates around to her groin. She has had renal stones before and feels like this is one. Pain is 10/10. Moving makes it worse. Nothing is making it better. No fevers or chills. Otherwise was feeling well prior the pain starting. Sharp and shooting pain that waxes and wanes. Onset: Today Duration: Hour(s): (2) Left Flank Pain Score (Numeric/FACES): 9 - Related Data Allergies Allergy/AdvReac Type Severity Reaction Status Date / Time No Known Allergies Allergy Verified 03/05/20 10:53 Home Meds: Home Meds Calcium Carbonate [Tums] 2 tab PO Q4HR 05/07/18 [History] Multivitamin/Iron/Folic Acid [Centrum Adults Tablet] 1 tab PO DAILY 05/07/18 [History] Omeprazole 20 mg PO DAILY 05/07/18 [History] Rosuvastatin [Crestor] 5 mg PO BEDTIME 05/07/18 [History] Sertraline [Zoloft] 25 mg PO DAILY 05/07/18 [History] Iron Polysaccharide Complex [Iferex 150] 150 mg PO DAILY 07/08/19 [History] Loperamide [Imodium] 2 mg PO QID PRN 07/08/19 [History] Aspirin [Aspirin EC] 325 mg PO DAILY 09/19/19 [History] Clopidogrel Bisulfate [Clopidogrel] 75 mg PO DAILY 09/19/19 [History] Levothyroxine Sodium [Euthyrox] 150 mcg PO DAILY 09/19/19 [History] Past Medical History HEENT History: Reports: Sinusitis Other HEENT History: wears corrective lenses Cardiovascular History: Reports: Blood Clots/VTE/DVT Respiratory History: Reports: Pneumonia, Recurrent Gastrointestinal History: Reports: None Genitourinary History: Reports: None 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 History: Reports: None Neurological History: Reports: CVA, Migraines Psychiatric History: Reports: Depression Endocrine/Metabolic History: Reports: Hypothyroidism Hematologic History: Reports: Anemia Immunologic History: Reports: None Oncologic (Cancer) History: Reports: None Dermatologic History: Reports: None - Infectious Disease History Infectious Disease History: Reports: None - Past Surgical History Head Surgeries/Procedures: Reports: None HEENT Surgical History: Reports: None Cardiovascular Surgical History: Reports: None Respiratory Surgical History: Reports: None GI Surgical History: Reports: Cholecystectomy, Colonoscopy, EGD Other GI Surgeries/Procedures: Currently has diarrhea Female Surgical History: Reports: Breast Biopsy, Tubal Ligation Endocrine Surgical History: Reports: None Neurological Surgical History: Reports: None 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 Surgical History: Reports: None Oncologic Surgical History: Reports: Biopsy of Breast Social & Family History - Family History Family Medical History: No Pertinent Family History HEENT: Reports: Cataract Cardiac: Reports: High Cholesterol Respiratory: Reports: None GI: Reports: None : Reports: None OBGYN: Reports: None 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: Reports: None Neurological: Reports: None Psychiatric: Reports: None Endocrine/Metabolic: Reports: Diabetes, Type I Hematologic: Reports: None Immunologic: Reports: None Dermatologic: Reports: None Oncologic: Reports: Colon - Tobacco Use Tobacco Use Status *Q: Current Status Unknown Second Hand Smoke Exposure: No - Caffeine Use Caffeine Use: Reports: Soda Other Caffeine Use: states drinks 1 Body [place] daily Caffeine Use Comment: COFFEE, 12OZ. 12 OZ SODA - Recreational Drug Use Recreational Drug Use: No ED ROS GENERAL - Review of Systems Review Of Systems: Comprehensive ROS is negative, except as noted in HPI. ED EXAM, RENAL/ - Physical Exam Exam: See Below Exam Limited By: No Limitations General Appearance: Alert, WD/WN, Moderate Distress (due to severe pain) Eye Exam: Bilateral Eye: Normal Inspection, PERRL Ears: Normal External Exam, Hearing Grossly Normal Nose: Normal Inspection, Normal Mucosa, No Blood Throat/Mouth: Normal Inspection, Normal Voice, No Airway Compromise Head: Atraumatic, Normocephalic Neck: Normal Inspection, Supple, Non-Tender, Full Range of Motion Respiratory/Chest: No Respiratory Distress, Lungs Clear, Normal Breath Sounds, No Accessory Muscle Use, Chest Non-Tender Cardiovascular: Normal Peripheral Pulses, Regular Rate, Rhythm, No Edema, No Murmur GI/Abdominal: Soft, No Distention, Tender (left flank and LLQ). No: Guarding, Rebound (Female) Exam: Deferred Rectal (Female) Exam: Deferred Back Exam: Normal Inspection Extremities: Normal Inspection, Normal Range of Motion, Non-Tender, No Pedal Edema, Normal Capillary Refill Neurological: Alert, Oriented, CN II-XII Intact, Normal Cognition, Normal Gait, Normal Reflexes, No Motor/Sensory Deficits Psychiatric: Normal Affect, Normal Mood Skin Exam: Warm, Dry, Intact, Normal Color, No Rash Lymphatic: No Adenopathy Course - Vital Signs Last Recorded V/S: Last Vital Signs Temp 97.8 F 10/22/20 05:21 Pulse 70 10/22/20 05:21 Resp 19 10/22/20 05:21 BP 142/89 H 10/22/20 05:21 Pulse Ox 96 10/22/20 05:21 - Orders/Labs/Meds Orders: Active Orders 24 hr Category Date Time Status Peripheral IV Care [RC] . DIRECTED Care 10/22/20 04:18 Active UA RFX LEW AND CULT IF INDIC [URIN] Stat Lab 10/22/20 04:18 Ordered HYDROmorphone [Dilaudid] Med 10/22/20 06:15 Once 1 mg IM ONETIME ONE Sodium Chloride 0.9% [Saline Flush] Med 10/22/20 04:18 Active 10 ml FLUSH ASDIRECTED PRN Peripheral IV Insertion Adult [OM.PC] Stat Oth 10/22/20 04:18 Ordered Medication Orders Sodium Chloride (Sodium Chloride 0.9% 10 Ml Syringe) 10 ml FLUSH ASDIRECTED PRN PRN Reason: Keep Vein Open Last Admin: 10/22/20 04:27 Dose: 10 ml Documented by: ABEL Labs: Laboratory Tests 10/22/20 10/22/20 Range/Units 04:20 04:20 WBC 9.1 (5.0-10.0) 10^3/uL RBC 3.48 L (4.2-5.4) 10^6/uL Hgb 8.1 L D (12.0-16.0) g/dL Hct 28.1 L (37.0-47.0) % MCV 80.7 D (80-100) fL MCH 23.3 L (27.0-34.0) pg MCHC 28.8 L (33.0-35.0) g/dL Plt Count 345 (150-450) 10^3/uL Neut % (Auto) 65.6 (42.2-75.2) % Lymph % (Auto) 21.5 (20.5-50.1) % [place] % (Auto) 6.7 (2-8) % Eos % (Auto) 5.7 H (1.0-3.0) % Baso % (Auto) 0.5 (0.0-1.0) % Sodium 141 (136-145) mmol/L Potassium 3.7 (3.5-5.1) mmol/L Chloride 106 (98-107) mmol/L Carbon Dioxide 25 (21-32) mmol/L Anion Gap 13.7 H (7-13) mEq/L BUN 19 H (7-18) mg/dL Creatinine 1.05 H (0.55-1.02) mg/dL Est Cr Clr Drug Dosing 49.82 mL/min Estimated GFR (MDRD) 54 BUN/Creatinine Ratio 18.1 (No establ ref range) Glucose 136 H (70-99) mg/dL Calcium 8.1 L (8.5-10.1) mg/dL Total Bilirubin 0.3 (0.2-1.0) mg/dL AST 14 L (15-37) U/L ALT 21 (14-59) U/L Alkaline Phosphatase 95 (46-116) U/L Total Protein 6.8 (6.4-8.2) g/dL Albumin 3.1 L (3.4-5.0) g/dL Globulin 3.7 Albumin/Globulin Ratio 0.84 Meds: Medications Generic Name Dose Route Start Last Admin Trade Name Freq PRN Reason Stop Dose Admin Sodium Chloride 10 ml 10/22/20 04:18 10/22/20 04:27 Sodium Chloride 0.9% 10 Ml Syringe FLUSH 10 ml ASDIRECTED PRN Administration Keep Vein Open Discontinued Medications Generic Name Dose Route Start Last Admin Trade Name Freq PRN Reason Stop Dose Admin Fentanyl 100 mcg 10/22/20 04:19 10/22/20 04:27 Fentanyl 100 Mcg/2 Ml Sdv IVPUSH 10/22/20 04:20 100 mcg ONETIME ONE Administration Fentanyl 100 mcg 10/22/20 05:30 10/22/20 05:35 Fentanyl 100 Mcg/2 Ml Sdv IVPUSH 10/22/20 05:31 100 mcg ONETIME ONE Administration Sodium Chloride 1,000 mls @ 999 mls/hr 10/22/20 04:19 10/22/20 04:29 Normal Saline IV 10/22/20 05:19 999 mls/hr .BOLUS ONE Administration Ketorolac Tromethamine 30 mg 10/22/20 04:47 10/22/20 04:55 Ketorolac 30 Mg/Ml Sdv IVPUSH 10/22/20 04:48 30 mg ONETIME ONE Administration Ondansetron HCl 4 mg 10/22/20 04:57 10/22/20 05:17 Ondansetron 4 Mg/2 Ml Sdv IVPUSH 10/22/20 04:58 4 mg ONETIME ONE Administration Promethazine HCl 50 mg 10/22/20 05:33 10/22/20 05:37 Promethazine 25 Mg/Ml Sdv IM 10/22/20 05:34 50 mg ONETIME ONE Administration Tamsulosin HCl 0.4 mg 10/22/20 04:47 10/22/20 04:55 Tamsulosin 0.4 Mg Cap.Er PO 10/22/20 04:48 0.4 mg ONETIME ONE Administration - Radiology Interpretation Free Text/Narrative:: CT Abdomen Pelvis: Compared to CT 09/19/19: Impression: 1. Interval slight worsening of the mild to moderate left hydronephrosis. Continued positioning of a stone in the proximal left ureter just superior to its crossing posterior to the left ovarian vein, with its current size of 2.3 x 1.6 mm representing interval enlargement of the same stone versus replacement by a different stone. Cortical scares in the kidneys and probably bilateral peripelvic cysts again evident. Focus of decreased density in the left renal cortex still probable. 2. Continued findings consistent with mesenteric adenitis. Probable enlarged node containing prominent hilar fat still present superior to the bladder. 3. Moderate hiatal hernia without distension still present. Other findings detailed above. Departure - Departure Time of Disposition: 06:15 Disposition: Home, Self-Care 01 Clinical Impression: Kidney stone on left side - Discharge Information *PRESCRIPTION DRUG MONITORING PROGRAM REVIEWED*: Not Applicable *COPY OF PRESCRIPTION DRUG MONITORING REPORT IN PATIENT [place]: Not Applicable Instructions: Kidney Stones, [id number] Forms: ED Department Discharge Additional Instructions: flomax 0.4 mg daily toradol 10 mg TID/PRN for no more than 5 days norco 5/325 Q6/PRN #10 Follow up with PCP in 5-7 days, or sooner if needed Sepsis Event Note (ED) - Evaluation Sepsis Screening Result: No Definite Risk - Focused Exam Vital Signs: Vital Signs Temp Pulse Resp BP Pulse Ox 10/22/20 05:21 97.8 F 70 19 142/89 H 96 10/22/20 04:16 97.7 F 75 19 147/92 H 98 - My Orders Last 24 Hours: My Active Orders 10/22/20 04:18 Peripheral IV Care [RC] . DIRECTED UA RFX LEW AND CULT IF INDIC [URIN] Stat Sodium Chloride 0.9% [Saline Flush] 10 ml FLUSH ASDIRECTED PRN Peripheral IV Insertion Adult [OM.PC] Stat 10/22/20 06:15 HYDROmorphone [Dilaudid] 1 mg IM ONETIME ONE - Assessment/Plan Last 24 Hours: My Active Orders 10/22/20 04:18 Peripheral IV Care [RC] . DIRECTED UA RFX LEW AND CULT IF INDIC [URIN] Stat Sodium Chloride 0.9% [Saline Flush] 10 ml FLUSH ASDIRECTED PRN Peripheral IV Insertion Adult [OM.PC] Stat 10/22/20 06:15 HYDROmorphone [Dilaudid] 1 mg IM ONETIME ONE
[2020-10-22 04:43] LABS: ANION GAP 13.7 mEq/L (7-13)
[2020-10-22] MEDS ORDERED: Tamsulosin 0.4 MG Cap.ER PO ONE (04:47)
[2020-10-22] MEDS ORDERED: Ketorolac 30 MG/ML SDV IVPUSH ONE (04:47)
[2020-10-22] MEDS ORDERED: Ondansetron 4 MG/2 ML SDV IVPUSH ONE (04:57)
[2020-10-22] MEDS ORDERED: Promethazine 25 MG/ML SDV IM ONE (05:33)
--- NOTE | 2020-10-22 05:36 | CT ---
PROCEDURE INFORMATION: Exam: CT Abdomen And Pelvis Without Contrast Exam date and time: 10/22/2020 4:39 AM Age: 60 years old Clinical indication: Other: Left sided pain; Additional info: Stone protocol TECHNIQUE: Imaging protocol: Computed tomography of the abdomen and pelvis without contrast. Radiation optimization: All CT scans at this facility use at least one of these dose optimization techniques: automated exposure control; mA and/or kV adjustment per patient size (includes targeted exams where dose is matched to clinical indication); or iterative reconstruction. COMPARISON: CT Abdomen Pelvis wo Cont 09/19/2019 3:01 AM FINDINGS: Lungs: Interval slight worsening of the dependent or compressive atelectasis in the lung bases. Mediastinal space: Continued moderate hiatal hernia without distension. Liver: Still no apparent liver disease. Gallbladder and bile ducts: Cholecystectomy again evident. No interval biliary ductal dilatation. Pancreas: Continued fatty infiltration of the pancreas. Still no pancreatic ductal dilatation. Spleen: Still no splenomegaly. Adrenal glands: Still no adrenal mass. Kidneys and ureters: Cortical scar in each kidney again evident. Bilateral peripelvic cysts still strongly suspected. Slight dilatation of a calyx in the right upper kidney still possible. Still no right ureteral stone. Focus of decreased density in the left renal cortex still probable. Continued left hydronephrosis, with interval slight worsening to [id number] in degree. Continued haziness in the fat around the left renal pelvis and upper left ureter; interval larger size of the 2.3 x 1.6 mm stone in the proximal left ureter (previous stone in this location 1.8 x 1.4 mm) positioned just superior to the crossing of this ureter posterior to the left ovarian vein. Still no stone more distally in the left ureter. Stomach and bowel: Marked sigmoid diverticulosis again evident. Adhesions still likely. Still no apparent obstruction. Appendix: Still no appendicitis. Intraperitoneal space: Still no free air. Vasculature: Still no abdominal aortic aneurysm. Lymph nodes: Continued haziness in the mesenteric fat around multiple small nodes. Continued prominent fat within the circumscribed 11 x 15 mm mass in the fat superior to the bladder probably representing an enlarged node. No interval suspicious nodes. Urinary bladder: No interval stone or distension. Reproductive: Unremarkable as visualized. Bones/joints: Old compression fractures again evident. Continued degeneration of several discs. Continued prominently increased lumbar lordosis. Slight spondylolisthesis at L4-L5 and L5-S1 still present. Soft tissues: No acute soft tissue finding. IMPRESSION: 1. Interval slight worsening of the [id number] left hydronephrosis. Continued positioning of a stone in the proximal left ureter just superior to its crossing posterior to the left ovarian vein, with its current size of 2.3 x 1.6 mm representing interval enlargement of the same stone versus replacement by a different stone. Cortical scars in the kidneys and probable bilateral peripelvic cysts again evident. Focus of decreased density in the left renal cortex still probable. Of 2. Continued findings consistent with mesenteric adenitis. Probable enlarged node containing prominent hilar fat still present superior to the bladder. 3. Moderate hiatal hernia without distension still present. Other findings detailed above.
[2020-10-22] MEDS ORDERED: HYDROmorphone 1 MG/ML Syringe IM ONE (06:15)
== END 2020-10-22 06:32 | disposition home or self-care (01) ==
LOC: DL.ED 04:08
DX: N13.2 Hydronephrosis with renal and ureteral calculous obstruction (principal); E03.9 Hypothyroidism, unspecified; Z86.73 Personal history of transient ischemic attack (TIA), and cerebral infarction without residual deficits; Z79.899 Other long term (current) drug therapy; Z79.82 Long term (current) use of aspirin; Z79.02 Long term (current) use of antithrombotics/antiplatelets
CPT/HCPCS: 36415; 74176; 80053; 85025; 96372; 96374; 96375; 96376; 99284; A9270; J1170; J1885; J2405; J2550; J3010; J7030

== ENCOUNTER 2021-07-02 14:33 | Emergency (ER) | payer BC ==
[2021-07-02] MEDS ORDERED: Promethazine 25 MG Tab PO ONE (14:34)
[2021-07-02] MEDS ORDERED: Sodium Chloride 0.9% 10 ML Syringe FLUSH PRN (14:45)
[2021-07-02] MEDS ORDERED: HYDROmorphone 1 MG/ML Syringe IVPUSH ONE ×2 (15:04→16:04)
[2021-07-02] MEDS ORDERED: Ketorolac 30 MG/ML SDV IVPUSH ONE (15:05)
[2021-07-02] MEDS ORDERED: Ondansetron 4 MG/2 ML SDV IV ONE (15:05)
[2021-07-02 15:54] LABS: ANION GAP 15.5 mEq/L (7-13); CHLORIDE,CL 102 mmol/L (98-107); SODIUM,NA 141 mmol/L (136-145)
[2021-07-02] MEDS ORDERED: Tamsulosin 0.4 MG Cap.ER PO ONE (15:59)
[2021-07-02] MEDS ORDERED: Promethazine 25 MG/ML SDV IM ONE (18:43)
[2021-07-02] MEDS ORDERED: Promethazine 25 MG/ML SDV ONE (18:54)
[2021-07-02] MEDS ORDERED: Promethazine 25 MG Tab ONE (19:40)
== END 2021-07-02 19:50 | disposition home or self-care (01) ==
LOC: DL.ED 14:33
DX: N13.2 Hydronephrosis with renal and ureteral calculous obstruction (principal); E03.9 Hypothyroidism, unspecified; Z79.82 Long term (current) use of aspirin; Z79.899 Other long term (current) drug therapy; Z86.73 Personal history of transient ischemic attack (TIA), and cerebral infarction without residual deficits
CPT/HCPCS: 36415; 74176; 80048; 85025; 96372; 96374; 96375; 96376; 99284; A9270; J1170; J1885; J2405; J2550; 99285

== ENCOUNTER 2023-11-13 16:29 | Emergency (ER) | payer BC ==
[2023-11-13 17:23] LABS: BASOPHILS PERCENT AUTO 0.5 % (0.0-1.0); EOSINOPHILS PERCENT AUTO 4.3 % (1.0-3.0); HEMATOCRIT 39.9 % (37.0-47.0); HEMOGLOBIN 12.2 g/dL (12.0-16.0); LYMPHOCYTES PERCENT AUTO 22.7 % (20.5-50.1); MEAN CORPUSCULAR HEMOGLOBIN 27.3 pg (27.0-34.0); MEAN CORPUSCULAR HGB CONC 30.6 g/dL (33.0-35.0); MEAN CORPUSCULAR VOLUME 89.3 fL (80-100); MONOCYTES PERCENT AUTO 7.8 % (2-8); NEUTROPHILS PERCENT AUTO 64.7 % (42.2-75.2); PLATELET COUNT,PLT 317 10^3/uL (150-450); RED BLOOD CELL COUNT 4.47 10^6/uL (4.2-5.4); WHITE BLOOD CELL COUNT,WBC 7.5 10^3/uL (5.0-10.0)
[2023-11-13 17:24] LABS: APPEARANCE,URINE CLOUDY (CLEAR); BILIRUBIN,URINE NEGATIVE (NEGATIVE); COLOR,URINE YELLOW (YELLOW); GLUCOSE,URINE NEGATIVE (NEGATIVE); KETONES,URINE NEGATIVE (NEGATIVE); LEUKOCYTE ESTERASE,URINE TRACE (NEGATIVE); NITRITE,URINE NEGATIVE (NEGATIVE); OCCULT BLOOD,URINE MODERATE (NEGATIVE); PROTEIN,URINE TRACE (NEGATIVE); UROBILINOGEN,URINE 0.2 mg/dL (0.2-1.0)
[2023-11-13 17:32] LABS: BACTERIA,URINE MANY /HPF (0-FEW/HPF); EPITHELIAL CELLS,URINE MODERATE /HPF (NOT SEEN); MUCUS,URINE MODERATE /LPF (NOT SEEN); RBC,URINE 50-75 /HPF (0-5); URIC ACID CRYSTALS,URINE MODERATE (NOT SEEN)
[2023-11-13 17:32] LABS: ANION GAP 16.6 mEq/L (7-13); CALCIUM 8.5 mg/dL (8.5-10.1); CREATININE 1.19 mg/dL (0.55-1.02); EST CRCL DRUG DOSING (CG) 42.33 mL/min; POTASSIUM,K 4.6 mmol/L (3.5-5.1)
[2023-11-13] MEDS: Ketorolac 30 MG/ML SDV IVPUSH ONE (17:36)
[2023-11-13] MEDS: Ondansetron 4 MG/2 ML SDV IV ONE (17:36)
[2023-11-13] MEDS: HYDROmorphone 1 MG/ML Syringe IVPUSH ONE (17:36)
[2023-11-13] MEDS: Sodium Chloride 0.9% 10 ML Syringe FLUSH PRN (17:37)
[2023-11-13] MEDS ORDERED: Ondansetron 4 MG/2 ML SDV IV ONE (17:41)
[2023-11-13] MEDS ORDERED: HYDROmorphone 1 MG/ML Syringe IVPUSH ONE (17:41)
[2023-11-13] MEDS: cefTRIAXone 2 GM Vial IVPUSH ONE (18:20)
[2023-11-13] MEDS: Sodium Chloride 0.9% 1,000 ML IV ONE (18:20)
[2023-11-13] MEDS: Take Home: Ondansetron 4 MG Tab.DIS, 5 Tab Pack PO ONE (18:54)
[2023-11-13] MEDS: Take Home: Acetaminophen/oxyCODONE 325-5 MG, 5 Tab Pack PO ONE (18:54)
== END 2023-11-13 19:08 | disposition home or self-care (01) ==
LOC: DL.ED 16:29
DX: N20.0 Calculus of kidney (principal); E03.9 Hypothyroidism, unspecified; Z79.82 Long term (current) use of aspirin; Z79.899 Other long term (current) drug therapy
CPT/HCPCS: 36415; 74176; 80048; 81001; 85025; 87086; 96361; 96374; 96375; 99284; A9270; J0696; J1170; J1885; J2405; J7030; Q0162; J3490

== ENCOUNTER 2023-12-11 06:08 | Emergency (ER) | payer BC ==
[2023-12-11] MEDS: Morphine 4 MG/ML Syringe IVPUSH ONE (06:42)
[2023-12-11 06:43] LABS: BASOPHILS PERCENT AUTO 0.4 % (0.0-1.0); HEMATOCRIT 37.8 % (37.0-47.0); HEMOGLOBIN 11.8 g/dL (12.0-16.0); LYMPHOCYTES PERCENT AUTO 9.9 % (20.5-50.1); MEAN CORPUSCULAR HEMOGLOBIN 27.8 pg (27.0-34.0); MEAN CORPUSCULAR HGB CONC 31.2 g/dL (33.0-35.0); MEAN CORPUSCULAR VOLUME 89.2 fL (80-100); MONOCYTES PERCENT AUTO 8.2 % (2-8); NEUTROPHILS PERCENT AUTO 80.5 % (42.2-75.2); PLATELET COUNT,PLT 292 10^3/uL (150-450); RED BLOOD CELL COUNT 4.24 10^6/uL (4.2-5.4); WHITE BLOOD CELL COUNT,WBC 9.4 10^3/uL (5.0-10.0)
[2023-12-11] MEDS: Ondansetron 4 MG/2 ML SDV IVPUSH ONE (06:43)
[2023-12-11] MEDS: Ketorolac 30 MG/ML SDV IVPUSH ONE (06:43)
[2023-12-11] MEDS: Sodium Chloride 0.9% 1,000 ML IV ONE (06:43)
[2023-12-11 07:02] LABS: ALBUMIN 3.2 g/dL (3.4-5.0); ANION GAP 12.8 mEq/L (7-13); BILIRUBIN TOTAL 0.3 mg/dL (0.2-1.0); BUN/CREATININE RATIO 17.5 (No establ ref range); CALCIUM 8.6 mg/dL (8.5-10.1); CREATININE 1.2 mg/dL (0.55-1.02); EST CRCL DRUG DOSING (CG) 41.97 mL/min; POTASSIUM,K 4.8 mmol/L (3.5-5.1); PROTEIN TOTAL,TP 6.9 g/dL (6.4-8.2)
[2023-12-11 07:03] LABS: A/G RATIO 0.86
[2023-12-11 08:40] LABS: APPEARANCE,URINE CLEAR (CLEAR); BILIRUBIN,URINE NEGATIVE (NEGATIVE); COLOR,URINE YELLOW (YELLOW); GLUCOSE,URINE NEGATIVE (NEGATIVE); KETONES,URINE NEGATIVE (NEGATIVE); LEUKOCYTE ESTERASE,URINE NEGATIVE (NEGATIVE); NITRITE,URINE NEGATIVE (NEGATIVE); OCCULT BLOOD,URINE LARGE (NEGATIVE); PH,URINE 5.5 (5.0-9.0); PROTEIN,URINE NEGATIVE (NEGATIVE); UROBILINOGEN,URINE 0.2 mg/dL (0.2-1.0)
[2023-12-11 08:55] LABS: WBC,URINE 0-5 /HPF (0-5/HPF)
[2023-12-11 08:56] LABS: BACTERIA,URINE RARE /HPF (0-FEW/HPF); EPITHELIAL CELLS,URINE FEW /HPF (NOT SEEN); RBC,URINE 20-30 /HPF (0-5)
[2023-12-11 08:57] LABS: MUCUS,URINE FEW /LPF (NOT SEEN)
== END 2023-12-11 08:57 | disposition home or self-care (01) ==
LOC: DL.ED 06:08
DX: N20.0 Calculus of kidney (principal); E03.9 Hypothyroidism, unspecified; Z79.890 Hormone replacement therapy; Z79.899 Other long term (current) drug therapy; Z79.82 Long term (current) use of aspirin
CPT/HCPCS: 36415; 80053; 81001; 83690; 85025; 96361; 96374; 96375; 99284; 99284-25; J1885; J2270; J2405; J7030

== ENCOUNTER 2023-12-12 23:26 | Emergency (ER) | payer BC ==
[2023-12-13] MEDS: Naloxone 2 MG/2 ML Syringe IVPUSH PRN (00:32)
[2023-12-13 00:45] LABS: BASOPHILS PERCENT AUTO 0.3 % (0.0-1.0); HEMATOCRIT 34.9 % (37.0-47.0); HEMOGLOBIN 10.5 g/dL (12.0-16.0); LYMPHOCYTES PERCENT AUTO 10.6 % (20.5-50.1); MEAN CORPUSCULAR HEMOGLOBIN 27.2 pg (27.0-34.0); MEAN CORPUSCULAR HGB CONC 30.1 g/dL (33.0-35.0); MEAN CORPUSCULAR VOLUME 90.4 fL (80-100); MONOCYTES PERCENT AUTO 8.6 % (2-8); NEUTROPHILS PERCENT AUTO 79.5 % (42.2-75.2); PLATELET COUNT,PLT 259 10^3/uL (150-450); RED BLOOD CELL COUNT 3.86 10^6/uL (4.2-5.4); WHITE BLOOD CELL COUNT,WBC 9.4 10^3/uL (5.0-10.0)
[2023-12-13] MEDS: Lactated Ringers 1,000 ML IV ONE (00:48)
[2023-12-13] MEDS: Ondansetron 4 MG/2 ML SDV IVPUSH ONE (00:51)
[2023-12-13] MEDS: Sodium Chloride 0.9% 10 ML Syringe FLUSH PRN (00:52)
[2023-12-13 00:54] LABS: ALBUMIN 2.9 g/dL (3.4-5.0); ANION GAP 11.1 mEq/L (7-13); BILIRUBIN TOTAL 0.3 mg/dL (0.2-1.0); CALCIUM 7.7 mg/dL (8.5-10.1); CREATININE 1.58 mg/dL (0.55-1.02); EST CRCL DRUG DOSING (CG) 31.88 mL/min; POTASSIUM,K 4.1 mmol/L (3.5-5.1); PROTEIN TOTAL,TP 6.6 g/dL (6.4-8.2)
[2023-12-13 00:56] LABS: A/G RATIO 0.78
[2023-12-13] MEDS: Acetaminophen 325 MG Tab PO ONE (01:20)
[2023-12-13] MEDS: diphenhydrAMINE 50 MG/ML SDV IVPUSH ONE (01:33)
[2023-12-13] MEDS: Tamsulosin 0.4 MG Cap.ER PO ONE (03:19)
[2023-12-13] MEDS: Oxybutynin 5 MG Tab.ER PO ONE (03:22)
== END 2023-12-13 03:40 | disposition home or self-care (01) ==
LOC: DL.ED 23:26
DX: G43.009 Migraine without aura, not intractable, without status migrainosus (principal); N13.2 Hydronephrosis with renal and ureteral calculous obstruction; N17.9 Acute kidney failure, unspecified; R06.03 Acute respiratory distress; T40.2X5A Adverse effect of other opioids, initial encounter; I15.9 Secondary hypertension, unspecified; E03.9 Hypothyroidism, unspecified; Z90.49 Acquired absence of other specified parts of digestive tract; Z79.82 Long term (current) use of aspirin; Z79.890 Hormone replacement therapy; Z79.899 Other long term (current) drug therapy; Z88.5 Allergy status to narcotic agent
CPT/HCPCS: 36415; 74176; 80053; 83690; 85025; 96361; 96374; 96375; 99284; A9270; J1200; J2310; J2405; J7120; J3490